=== PATIENT | male | born 1960 | race Hispanic/Latino ===

== ENCOUNTER 2017-09-01 19:42 | Emergency (ER) | payer SELFPAY ==
[2017-09-01 20:16] LABS: BASOPHILS % (AUTO) 0.7 % (0.0-5.0); EOSINOPHILS % (AUTO) 2.1 % (0.0-8.0); HEMATOCRIT 41.8 % (42-54); LYMPHOCYTES % (AUTO) 43.8 % (21.0-51.0); MEAN CORPUSCULAR HEMOGLOBIN 31.5 pg (27.0-33.0); MEAN CORPUSCULAR HGB CONC 35.3 g/dL (32.0-36.0); MEAN CORPUSCULAR VOLUME 89.4 fL (79-99); MONOCYTES % (AUTO) 8.4 % (3.0-13.0); NUCLEATED RED BLOOD CELLS 0.2 % (0.0-0.19); PLATELET COUNT (AUTO) 226 K/uL (130-400); RED BLOOD CELL COUNT(AUTO) 4.67 MIL/uL (4.50-6.20); RED CELL DISTRIBUTION WIDTH 13.9 % (11.0-15.5)
[2017-09-01 20:29] LABS: CARBON DIOXIDE 29 mmol/L (21-32); CHLORIDE 105 mmol/L (101-111); GLOMERULAR FILTR. RATE CALC 82 mL/min (>60); GLUCOSE,RANDOM 118 mg/dL (70-105); INR 1.04 (0.85-1.15); PARTIAL THROMBOPLASTIN TIME 25.8 SEC (26.3-35.5); POTASSIUM 3.6 mmol/L (3.5-5.1); PROTHROMBIN TIME 10.9 SEC (9.6-11.6); SODIUM SERUM 142 mmol/L (136-145); UREA NITROGEN, BLOOD 20 mg/dL (7-18)
[2017-09-01 20:42] LABS: ALANINE AMINOTRANSFERASE 21 U/L (12-78); ALBUMIN 3.9 g/dL (3.5-5.0); ASPARTATE AMINOTRANSFERASE 17 U/L (10-37); BILIRUBIN,TOTAL 1.6 mg/dL (0.2-1.0); CREATINE KINASE MB 0.8 ng/mL (0.5-3.6); CREATINE KINASE, TOTAL 70 U/L (21-232); LIPASE 256 U/L (114-286); MYOGLOBIN 40 ng/mL (10-92); TOTAL PROTEIN, SERUM 7.6 g/dL (6.0-8.3); TROPONIN I < 0.04 ng/mL (0.00-0.06)
[2017-09-01] MEDS ORDERED: IOPAMIDOL-370 75 ML VIAL IV ONE (21:04)
[2017-09-01 22:27] LABS: APPEARANCE,URINE Clear (CLEAR); BILIRUBIN,URINE Negative (NEGATIVE); COLOR,URINE Yellow (YELLOW); GLUCOSE, URINE (UA) Negative (NEGATIVE); KETONES,URINE Negative (NEGATIVE); LEUKOCYTE ESTERASE ,URINE Negative (NEGATIVE); NITRATE,URINE Negative (NEGATIVE); OCCULT BLOOD,URINE Negative (NEGATIVE); PROTEIN,URINE Negative (NEGATIVE)
== END 2017-09-01 23:03 | disposition home or self-care (01) ==
LOC: EDH 19:42
DX: K52.9 Noninfective gastroenteritis and colitis, unspecified (principal); E11.9 Type 2 diabetes mellitus without complications; R79.1 Abnormal coagulation profile; Z88.0 Allergy status to penicillin
CPT/HCPCS: 36415; 71045; 74177; 80053; 80339; 81003; 82550; 82553; 83605; 83690; 83874; 84484 ×2; 85025; 85610; 85730; 87040 ×2; 87088; 93005; 94761; 96360; 96361; 99285; Q9967

== ENCOUNTER 2019-03-19 19:31 | Emergency (ER) | payer SELFPAY ==
[2019-03-19 19:50] LABS: BASOPHILS % (AUTO) 0.8 % (0.0-5.0); EOSINOPHILS % (AUTO) 1.3 % (0.0-8.0); HEMATOCRIT 40.6 % (42-54); LYMPHOCYTES % (AUTO) 41.1 % (21.0-51.0); MEAN CORPUSCULAR HEMOGLOBIN 31.9 pg (27.0-33.0); MEAN CORPUSCULAR HGB CONC 34.3 g/dL (32.0-36.0); MEAN CORPUSCULAR VOLUME 93.1 fL (79-99); MONOCYTES % (AUTO) 6.9 % (3.0-13.0); NEUTROPHILS % (AUTO) 49.9 % (40.0-77.0); NUCLEATED RED BLOOD CELLS 0.1 % (0.0-0.19); PLATELET COUNT (AUTO) 211 K/uL (130-400); RED BLOOD CELL COUNT(AUTO) 4.37 MIL/uL (4.50-6.20); RED CELL DISTRIBUTION WIDTH 14.4 % (11.0-15.5); WHITE BLOOD COUNT (AUTO) 5.5 K/uL (4.8-10.8)
[2019-03-19] MEDS ORDERED: DiphenhydrAMINE HCL 50 MG/ML VIAL ONE (19:56)
[2019-03-19] MEDS ORDERED: ONDANSETRON HCL 4 MG/2 ML VIAL ONE (19:56)
[2019-03-19 20:01] LABS: POTASSIUM 3.5 mmol/L (3.5-5.1)
[2019-03-19 20:03] LABS: BILIRUBIN,URINE Negative (NEGATIVE); COLOR,URINE Yellow (YELLOW); GLUCOSE, URINE (UA) Negative (NEGATIVE); KETONES,URINE Negative (NEGATIVE); LEUKOCYTE ESTERASE ,URINE Negative (NEGATIVE); NITRATE,URINE Negative (NEGATIVE); OCCULT BLOOD,URINE Negative (NEGATIVE); PH,URINE 8.5 (5.0-8.0); PROTEIN,URINE Negative (NEGATIVE)
[2019-03-19 20:06] LABS: ALBUMIN 3.7 g/dL (3.5-5.0); BILIRUBIN,TOTAL 1.1 mg/dL (0.2-1.0); TOTAL PROTEIN, SERUM 7.3 g/dL (6.0-8.3)
[2019-03-19 20:07] LABS: APPEARANCE,URINE CLEAR (CLEAR)
[2019-03-19 20:11] LABS: AMPHET/METH SCREEN,URINE NEGATIVE (NEGATIVE); BARBITURATE SCREEN, URINE NEGATIVE (NEGATIVE); BENZODIAZEPINES SCREEN,URINE NEGATIVE (NEGATIVE); CANNABINOID SCREEN,URINE NEGATIVE (NEGATIVE); COCAINE SCREEN,URINE NEGATIVE (NEGATIVE); OPIATE SCREEN,URINE NEGATIVE (NEGATIVE); PHENCYCLIDINE SCREEN,URINE NEGATIVE (NEGATIVE)
== END 2019-03-19 23:29 | disposition home or self-care (01) ==
LOC: EDH 19:31
DX: H81.10 Benign paroxysmal vertigo, unspecified ear (principal); R55 Syncope and collapse; R06.4 Hyperventilation; E11.9 Type 2 diabetes mellitus without complications; F32.9 Major depressive disorder, single episode, unspecified; F41.9 Anxiety disorder, unspecified; Z88.0 Allergy status to penicillin
CPT/HCPCS: 36415; 71045; 80053; 80305; 81003; 83690; 84484 ×2; 85025; 93005 ×2; 96374; 96375; 99285; J1200; J2405

== ENCOUNTER 2019-05-21 23:23 | Emergency (ER) | payer SELFPAY ==
[2019-05-21] MEDS ORDERED: SODIUM CHLORIDE 0.9% 1000ML 1,000 ML IV ONE (23:42)
[2019-05-21] MEDS ORDERED: ACETAMINOPHEN EXTRA STRENGTH 500 MG TABLET ONE (23:44)
[2019-05-21 23:50] LABS: BASOPHILS % (AUTO) 0.6 % (0.0-5.0); EOSINOPHILS % (AUTO) 0.2 % (0.0-8.0); HEMATOCRIT 37.2 % (42-54); LYMPHOCYTES % (AUTO) 50.1 % (21.0-51.0); MEAN CORPUSCULAR HEMOGLOBIN 31.3 pg (27.0-33.0); MEAN CORPUSCULAR HGB CONC 34.7 g/dL (32.0-36.0); MEAN CORPUSCULAR VOLUME 90.3 fL (79-99); MONOCYTES % (AUTO) 18.4 % (3.0-13.0); NEUTROPHILS % (AUTO) 30.3 % (40.0-77.0); PLATELET COUNT (AUTO) 174 K/uL (130-400); RED BLOOD CELL COUNT(AUTO) 4.12 MIL/uL (4.50-6.20); RED CELL DISTRIBUTION WIDTH 13.3 % (11.0-15.5)
[2019-05-22 00:03] LABS: CARBON DIOXIDE 26 mmol/L (21-32); CHLORIDE 103 mmol/L (101-111); CREATININE 1.1 mg/dL (0.5-1.5); GLOMERULAR FILTR. RATE CALC 73 mL/min (>60); GLUCOSE,RANDOM 95 mg/dL (70-105); POTASSIUM 4.1 mmol/L (3.5-5.1); SODIUM SERUM 140 mmol/L (136-145); UREA NITROGEN, BLOOD 22 mg/dL (7-18)
[2019-05-22 00:13] LABS: INR 0.98 (0.85-1.15); PARTIAL THROMBOPLASTIN TIME 26.4 SEC (26.3-35.5); PROTHROMBIN TIME 10.3 SEC (9.6-11.6)
[2019-05-22 00:14] LABS: ALANINE AMINOTRANSFERASE 28 U/L (12-78); ASPARTATE AMINOTRANSFERASE 37 U/L (10-37); BILIRUBIN,TOTAL 1.1 mg/dL (0.2-1.0); CREATINE KINASE, TOTAL 375 U/L (21-232); MYOGLOBIN 214 ng/mL (10-92); TOTAL PROTEIN, SERUM 7.8 g/dL (6.0-8.3); TROPONIN I < 0.04 ng/mL (0.00-0.06)
[2019-05-22 00:36] LABS: APPEARANCE,URINE Clear (CLEAR); BILIRUBIN,URINE Negative (NEGATIVE); COLOR,URINE Yellow (YELLOW); GLUCOSE, URINE (UA) Negative (NEGATIVE); KETONES,URINE 15 mg/dL (NEGATIVE); LEUKOCYTE ESTERASE ,URINE Negative (NEGATIVE); NITRATE,URINE Negative (NEGATIVE); OCCULT BLOOD,URINE Negative (NEGATIVE); PH,URINE 6.5 (5.0-8.0); PROTEIN,URINE Trace mg/dL (NEGATIVE)
[2019-05-22 00:55] LABS: RBC,URINE 0-1 /HPF (0-1); WBC,URINE 0-1 /HPF (0-1)
[2019-05-22 00:56] LABS: BACTERIA,URINE Few /HPF (None Seen); SQUAMOUS EPITHELIAL CELL,UR 0-2 /HPF (0-2)
== END 2019-05-22 01:24 | disposition home or self-care (01) ==
LOC: EDH 23:23
DX: J11.1 Influenza due to unidentified influenza virus with other respiratory manifestations (principal); E86.9 Volume depletion, unspecified; R53.83 Other fatigue; R55 Syncope and collapse; F41.9 Anxiety disorder, unspecified; F32.9 Major depressive disorder, single episode, unspecified; Z98.890 Other specified postprocedural states; Z88.0 Allergy status to penicillin
CPT/HCPCS: 36415 ×2; 70450; 71045; 80053; 81001; 82550; 83605; 83874; 84145; 84484 ×2; 85025; 85610; 85730; 87040 ×2; 87088; 87804 ×2; 93005; 96360; 99285; J7030

== ENCOUNTER 2019-12-07 22:43 | Emergency (ER) | payer OTHER, SELFPAY ==
[2019-12-07] MEDS ORDERED: ONDANSETRON ODT 4 MG TAB ONE (23:04)
== END 2019-12-08 00:21 | disposition home or self-care (01) ==
LOC: EDH 22:43
DX: R11.2 Nausea with vomiting, unspecified (principal); E11.9 Type 2 diabetes mellitus without complications; F41.9 Anxiety disorder, unspecified; F32.9 Major depressive disorder, single episode, unspecified; Z88.0 Allergy status to penicillin
CPT/HCPCS: 82948

== ENCOUNTER 2020-02-09 02:16 | Emergency (ER) | payer SELFPAY ==
[2020-02-09] MEDS ORDERED: SODIUM CHLORIDE 0.9% 1000ML 1,000 ML IV ONE (02:17)
[2020-02-09 02:47] LABS: BASOPHILS % (AUTO) 0.3 % (0.0-5.0); EOSINOPHILS % (AUTO) 1.4 % (0.0-8.0); HEMATOCRIT 34.8 % (42-54); LYMPHOCYTES % (AUTO) 41.6 % (21.0-51.0); MEAN CORPUSCULAR HEMOGLOBIN 33.6 pg (27.0-33.0); MEAN CORPUSCULAR HGB CONC 35.1 g/dL (32.0-36.0); MEAN CORPUSCULAR VOLUME 95.9 fL (79-99); MONOCYTES % (AUTO) 7.9 % (3.0-13.0); NEUTROPHILS % (AUTO) 48.6 % (40.0-77.0); PLATELET COUNT (AUTO) 256 K/uL (130-400); RED BLOOD CELL COUNT(AUTO) 3.63 MIL/uL (4.50-6.20); RED CELL DISTRIBUTION WIDTH 13.9 % (11.0-15.5); WHITE BLOOD COUNT (AUTO) 6.5 K/uL (4.8-10.8)
[2020-02-09 02:56] LABS: CREATININE 0.9 mg/dL (0.5-1.5); POTASSIUM 3.8 mmol/L (3.5-5.1)
[2020-02-09 02:59] LABS: INR 0.96 (0.85-1.15); PARTIAL THROMBOPLASTIN TIME 21.3 SEC (26.3-35.5); PROTHROMBIN TIME 10.4 SEC (9.6-11.6)
[2020-02-09 03:01] LABS: ALBUMIN 3.8 g/dL (3.5-5.0); BILIRUBIN,TOTAL 0.7 mg/dL (0.2-1.0)
[2020-02-09] MEDS ORDERED: MECLIZINE HCL 25 MG TABLET ONE (03:15)
[2020-02-09] MEDS ORDERED: ONDANSETRON HCL 4 MG/2 ML VIAL ONE (03:16)
[2020-02-09 04:19] LABS: AMPHET/METH SCREEN,URINE NEGATIVE (NEGATIVE); BARBITURATE SCREEN, URINE NEGATIVE (NEGATIVE); BENZODIAZEPINES SCREEN,URINE NEGATIVE (NEGATIVE); CANNABINOID SCREEN,URINE NEGATIVE (NEGATIVE); COCAINE SCREEN,URINE NEGATIVE (NEGATIVE); OPIATE SCREEN,URINE NEGATIVE (NEGATIVE); PHENCYCLIDINE SCREEN,URINE NEGATIVE (NEGATIVE)
[2020-02-09 05:24] LABS: APPEARANCE,URINE Clear (CLEAR); BILIRUBIN,URINE Negative (NEGATIVE); COLOR,URINE Yellow (YELLOW); GLUCOSE, URINE (UA) Negative (NEGATIVE); KETONES,URINE Trace mg/dL (NEGATIVE); LEUKOCYTE ESTERASE ,URINE Negative (NEGATIVE); NITRATE,URINE Negative (NEGATIVE); OCCULT BLOOD,URINE Moderate (NEGATIVE); PROTEIN,URINE Trace mg/dL (NEGATIVE)
[2020-02-09 05:36] LABS: BACTERIA,URINE None Seen /HPF (None Seen); MUCUS,URINE Rare LPF (None Seen); SQUAMOUS EPITHELIAL CELL,UR Rare /HPF (0-2); WBC,URINE None Seen /HPF (0-1)
[2020-02-09] MEDS ORDERED: ACETAMINOPHEN 325 MG TAB ONE (06:03)
== END 2020-02-09 07:03 | disposition home or self-care (01) ==
LOC: EDH 02:16
DX: R42 Dizziness and giddiness (principal); R11.10 Vomiting, unspecified; R94.02 Abnormal brain scan; F41.9 Anxiety disorder, unspecified; F32.9 Major depressive disorder, single episode, unspecified; E11.9 Type 2 diabetes mellitus without complications; Z90.49 Acquired absence of other specified parts of digestive tract; Z88.0 Allergy status to penicillin
CPT/HCPCS: 36415; 70450; 80053; 80305; 81001; 82550; 82948; 83690; 84484; 85025; 85610; 85730; 93005; 96361; 96374; 99285; J2405; J7030

== ENCOUNTER 2020-03-09 19:25 | Inpatient (IN) | payer OTHER, SELFPAY ==
[~2020-03-09] VITALS: Ht 175.3 cm; Wt 51.8 kg
[2020-03-09 20:02] LABS: BASOPHILS % (AUTO) 0.2 % (0.0-5.0); EOSINOPHILS % (AUTO) 1.7 % (0.0-8.0); HEMATOCRIT 40.4 % (42-54); LYMPHOCYTES % (AUTO) 41.3 % (21.0-51.0); MEAN CORPUSCULAR HEMOGLOBIN 33.6 pg (27.0-33.0); MEAN CORPUSCULAR HGB CONC 34.9 g/dL (32.0-36.0); MEAN CORPUSCULAR VOLUME 96.2 fL (79-99); MONOCYTES % (AUTO) 7.4 % (3.0-13.0); NEUTROPHILS % (AUTO) 49.4 % (40.0-77.0); PLATELET COUNT (AUTO) 264 K/uL (130-400); WHITE BLOOD COUNT (AUTO) 5.3 K/uL (4.8-10.8)
[2020-03-09] MEDS ORDERED: MECLIZINE HCL 25 MG TABLET ONE (20:14)
[2020-03-09] MEDS ORDERED: ONDANSETRON HCL 4 MG/2 ML VIAL ONE (20:14)
[2020-03-09] MEDS ORDERED: SODIUM CHLORIDE 0.9% 1000ML 1,000 ML IV ONE (20:15)
[2020-03-09 20:16] LABS: CREATININE 0.9 mg/dL (0.5-1.5); POTASSIUM 3.7 mmol/L (3.5-5.1)
[2020-03-09 20:20] LABS: ALBUMIN 4.4 g/dL (3.5-5.0); BILIRUBIN,TOTAL 0.9 mg/dL (0.2-1.0); TOTAL PROTEIN, SERUM 8.5 g/dL (6.0-8.3)
[2020-03-09] MEDS ORDERED: ACETAMINOPHEN 325 MG TAB PO PRN (21:30)
[2020-03-09] MEDS ORDERED: ONDANSETRON HCL 4 MG/2 ML VIAL IV PRN (21:30)
[2020-03-09] MEDS ORDERED: LACTULOSE 20 GM/30 ML UDCUP PO PRN (21:30)
[2020-03-09] MEDS ORDERED: MECLIZINE HCL 25 MG TABLET PO PRN (21:30)
[2020-03-09 21:52] LABS: APPEARANCE,URINE Clear (CLEAR); BILIRUBIN,URINE Negative (NEGATIVE); COLOR,URINE Yellow (YELLOW); GLUCOSE, URINE (UA) Negative (NEGATIVE); KETONES,URINE Negative (NEGATIVE); LEUKOCYTE ESTERASE ,URINE Negative (NEGATIVE); NITRATE,URINE Negative (NEGATIVE); OCCULT BLOOD,URINE Negative (NEGATIVE); PH,URINE 5.5 (5.0-8.0); PROTEIN,URINE Negative (NEGATIVE)
[2020-03-09] MEDS ORDERED: FAMOTIDINE 20MG TAB 20 MG TAB ONE (22:39)
[2020-03-09] MEDS ORDERED: ACETAMINOPHEN 325 MG TAB ONE (22:40)
[2020-03-10 06:47] LABS: BASOPHILS % (AUTO) 0.2 % (0.0-5.0); EOSINOPHILS % (AUTO) 2.3 % (0.0-8.0); HEMATOCRIT 34.6 % (42-54); LYMPHOCYTES % (AUTO) 41.4 % (21.0-51.0); MEAN CORPUSCULAR HEMOGLOBIN 33.3 pg (27.0-33.0); MEAN CORPUSCULAR VOLUME 95.3 fL (79-99); MONOCYTES % (AUTO) 9.3 % (3.0-13.0); NEUTROPHILS % (AUTO) 46.6 % (40.0-77.0); PLATELET COUNT (AUTO) 226 K/uL (130-400); RED BLOOD CELL COUNT(AUTO) 3.63 MIL/uL (4.50-6.20); RED CELL DISTRIBUTION WIDTH 13.7 % (11.0-15.5); WHITE BLOOD COUNT (AUTO) 4.9 K/uL (4.8-10.8)
[2020-03-10 06:58] LABS: CREATININE 0.8 mg/dL (0.5-1.5)
[2020-03-10] MEDS ORDERED: MECLIZINE HCL 25 MG TABLET ONE ×2 (07:51→14:37)
[2020-03-10 18:05] VITALS: BP 114/75
[2020-03-10 19:00] VITALS: BP 112/80
[2020-03-10] MEDS: FAMOTIDINE 20MG TAB 20 MG TAB PO SCH (20:38)
[2020-03-10] MEDS: SODIUM CHLORIDE 0.9% 1000ML 1,000 ML IV SCH ×2 (20:46→23:34)
[2020-03-11] VITALS (7 sets, daily range): BP systolic 98–121; BP diastolic 55–71
[2020-03-11] MEDS: ACETAMINOPHEN 325 MG TAB PO PRN (04:51)
--- NOTE | 2020-03-11 08:00 | NUR ---
PT AAO X 3 REVIEW PLAN OF CARE, DENIES ANY DIZZNESS . CALL LIGHT IN REACH .
[2020-03-11] MEDS: SODIUM CHLORIDE 0.9% 1000ML 1,000 ML IV SCH (09:04)
[2020-03-11] MEDS: FAMOTIDINE 20MG TAB 20 MG TAB PO SCH ×2 (09:04→20:19)
--- NOTE | 2020-03-11 09:30 | NUR ---
DR. CARTER HERE , AND ASSESSMENT NEURO DONE , PT WAS ABLE TO STAND WELL AT PRESENT , DANI LorenzoORDERS FOR A MRI . TO BE DONE TODAY.
--- NOTE | 2020-03-11 13:51 | NUR ---
cm note met with patient and states resides athome with sister, independent with ambulation and adls. but getting weaker and would llike assistance. provided with area agency on aging ph#s and requested I call for him as well and left message for [facility] for f/u. for possible provider services and possible walker.provided with list of community resources and rx assist. pt verbalizes understanding. Addendum: 03/11/20 at 1355 by THIEN MARTINEZ CM Amended: Links added.
--- NOTE | 2020-03-11 16:00 | NUR ---
RESTING QUIETLY ,DENIES ANY DIZZNESS , AND CALL LIGHT IN REACH .
[2020-03-12] MEDS: SODIUM CHLORIDE 0.9% 1000ML 1,000 ML IV SCH (02:50)
[2020-03-12 03:45] VITALS: BP 107/61
[2020-03-12] MEDS: ACETAMINOPHEN 325 MG TAB PO PRN (05:35)
[2020-03-12 05:43] LABS: BASOPHILS % (AUTO) 0.4 % (0.0-5.0); EOSINOPHILS % (AUTO) 3.4 % (0.0-8.0); HEMATOCRIT 37.1 % (42-54); LYMPHOCYTES % (AUTO) 41.7 % (21.0-51.0); MEAN CORPUSCULAR HEMOGLOBIN 33.3 pg (27.0-33.0); MEAN CORPUSCULAR HGB CONC 34.8 g/dL (32.0-36.0); MEAN CORPUSCULAR VOLUME 95.9 fL (79-99); MONOCYTES % (AUTO) 10.2 % (3.0-13.0); NEUTROPHILS % (AUTO) 44.3 % (40.0-77.0); PLATELET COUNT (AUTO) 253 K/uL (130-400); RED BLOOD CELL COUNT(AUTO) 3.87 MIL/uL (4.50-6.20); RED CELL DISTRIBUTION WIDTH 13.2 % (11.0-15.5); WHITE BLOOD COUNT (AUTO) 4.7 K/uL (4.8-10.8)
[2020-03-12 06:01] LABS: CREATININE 0.9 mg/dL (0.5-1.5); POTASSIUM 4.1 mmol/L (3.5-5.1)
--- NOTE | 2020-03-12 06:09 | NUR ---
PATIENT HAS A BLOOD SUGAR OF 80. I GAVE HIM SOME APPLE JUICE TO RAISE IT AND SOME ACETAMINOPHEN FOR HEADACHE
[2020-03-12 08:00] VITALS: BP 106/68
--- NOTE | 2020-03-12 08:00 | NUR ---
PT UP IN THE ROOM . REVIEW . FALL RISK , DENIES ANY DIZZNESS SPELLS CALL LIGHT IN REACH.
--- NOTE | 2020-03-12 08:50 | NUR ---
DR. CARTER HERE ,AND ASSESSMENT DONE . SPOKE TO PT REGARDING HIS , CARE TO [facility] IN HIS OFFICE, AND NEEDED REFERRAL TO A [facility] DUE TO HIS CONDITION OF HIS BRAIN . PT . AWARE OF INDICATION OF CARE.
[2020-03-12] MEDS: FAMOTIDINE 20MG TAB 20 MG TAB PO SCH (09:52)
[2020-03-12 12:00] VITALS: BP 122/72
[2020-03-12 16:00] VITALS: BP 118/79
--- NOTE | 2020-03-12 18:35 | NUR ---
[facility], REVIEW SUMMARY. AND LIST GIVEN FOR PRIVATE DRBj FOR HIS FOLLOWUP. SL TO HIS RT FOREARM WAS DC WITH NO HEMATOMA OR REDNESS NOTED .. SM PRESSURE APPLICATION DRSG IN PLACE ,DENIES ANY DIZZNESSS .
== END 2020-03-12 18:35 | disposition home or self-care (01) | DRG 57 ==
LOC: EDH 19:25 → EDHIP 19:26 → 3BH 03-10 17:51
PROVIDERS: ADMIT Family Medicine; ATTEND Family Medicine
DX: G23.8 Other specified degenerative diseases of basal ganglia (principal); F41.9 Anxiety disorder, unspecified; F31.9 Bipolar disorder, unspecified; R29.6 Repeated falls; Z88.0 Allergy status to penicillin
CPT/HCPCS: 36415; 70450; 70544; 70547; 70551; 80048; 80053; 81003; 82948; 83605; 83690; 83735; 85025; 93005; G0378; J2405; J7030

== ENCOUNTER 2020-04-07 12:01 | Emergency (ER) | payer SELFPAY ==
[2020-04-07] MEDS ORDERED: PROMETHAZINE HCL 25 MG/ML 1ML AMPULE IM ONE (12:02)
[2020-04-07] MEDS ORDERED: SODIUM CHLORIDE 0.9% 50 ML IV ONE (12:25)
[2020-04-07 12:27] LABS: BASOPHILS % (AUTO) 0.4 % (0.0-5.0); EOSINOPHILS % (AUTO) 0.9 % (0.0-8.0); HEMATOCRIT 36.6 % (42-54); LYMPHOCYTES % (AUTO) 32.7 % (21.0-51.0); MEAN CORPUSCULAR HEMOGLOBIN 34.1 pg (27.0-33.0); MEAN CORPUSCULAR HGB CONC 35.2 g/dL (32.0-36.0); MEAN CORPUSCULAR VOLUME 96.8 fL (79-99); MONOCYTES % (AUTO) 7.1 % (3.0-13.0); NEUTROPHILS % (AUTO) 58.7 % (40.0-77.0); PLATELET COUNT (AUTO) 276 K/uL (130-400); RED BLOOD CELL COUNT(AUTO) 3.78 MIL/uL (4.50-6.20); RED CELL DISTRIBUTION WIDTH 13.6 % (11.0-15.5); WHITE BLOOD COUNT (AUTO) 5.4 K/uL (4.8-10.8)
[2020-04-07 12:54] LABS: POTASSIUM 3.9 mmol/L (3.5-5.1)
[2020-04-07 12:58] LABS: ALBUMIN 3.8 g/dL (3.5-5.0); TOTAL PROTEIN, SERUM 7.4 g/dL (6.0-8.3)
[2020-04-07 13:40] LABS: APPEARANCE,URINE Clear (CLEAR); BILIRUBIN,URINE Negative (NEGATIVE); COLOR,URINE Yellow (YELLOW); GLUCOSE, URINE (UA) Negative (NEGATIVE); KETONES,URINE Negative (NEGATIVE); LEUKOCYTE ESTERASE ,URINE Negative (NEGATIVE); NITRATE,URINE Negative (NEGATIVE); OCCULT BLOOD,URINE Negative (NEGATIVE); PH,URINE 5.5 (5.0-8.0); PROTEIN,URINE Negative (NEGATIVE)
== END 2020-04-07 14:15 | disposition home or self-care (01) ==
LOC: EDH 12:01
DX: R13.10 Dysphagia, unspecified (principal); R11.10 Vomiting, unspecified; E11.9 Type 2 diabetes mellitus without complications; F31.9 Bipolar disorder, unspecified; F41.9 Anxiety disorder, unspecified; F20.9 Schizophrenia, unspecified; Z88.0 Allergy status to penicillin
CPT/HCPCS: 36415; 70360; 74018; 80053; 81003; 83690; 85025; 96365; 99284; J2550

== ENCOUNTER 2020-04-18 11:32 | Emergency (ER) | payer SELFPAY ==
[2020-04-18 12:07] LABS: APPEARANCE,URINE Clear (CLEAR); BILIRUBIN,URINE Negative (NEGATIVE); COLOR,URINE Yellow (YELLOW); GLUCOSE, URINE (UA) Negative (NEGATIVE); KETONES,URINE Negative (NEGATIVE); LEUKOCYTE ESTERASE ,URINE Trace (NEGATIVE); NITRATE,URINE Negative (NEGATIVE); OCCULT BLOOD,URINE Negative (NEGATIVE); PROTEIN,URINE Negative (NEGATIVE)
[2020-04-18 12:13] LABS: AMPHET/METH SCREEN,URINE NEGATIVE (NEGATIVE); BARBITURATE SCREEN, URINE NEGATIVE (NEGATIVE); BENZODIAZEPINES SCREEN,URINE NEGATIVE (NEGATIVE); CANNABINOID SCREEN,URINE NEGATIVE (NEGATIVE); COCAINE SCREEN,URINE NEGATIVE (NEGATIVE); OPIATE SCREEN,URINE NEGATIVE (NEGATIVE); PHENCYCLIDINE SCREEN,URINE NEGATIVE (NEGATIVE)
[2020-04-18 12:15] LABS: BASOPHILS % (AUTO) 0.5 % (0.0-5.0); EOSINOPHILS % (AUTO) 0.9 % (0.0-8.0); LYMPHOCYTES % (AUTO) 31.7 % (21.0-51.0); MEAN CORPUSCULAR HEMOGLOBIN 34.1 pg (27.0-33.0); MEAN CORPUSCULAR HGB CONC 35.1 g/dL (32.0-36.0); MEAN CORPUSCULAR VOLUME 97.2 fL (79-99); MONOCYTES % (AUTO) 7.8 % (3.0-13.0); NEUTROPHILS % (AUTO) 58.9 % (40.0-77.0); PLATELET COUNT (AUTO) 291 K/uL (130-400); RED BLOOD CELL COUNT(AUTO) 4.22 MIL/uL (4.50-6.20); RED CELL DISTRIBUTION WIDTH 12.9 % (11.0-15.5); WHITE BLOOD COUNT (AUTO) 4.4 K/uL (4.8-10.8)
[2020-04-18 12:34] LABS: BACTERIA,URINE Rare /HPF (None Seen); RBC,URINE 0-1 /HPF (0-1); SQUAMOUS EPITHELIAL CELL,UR Rare /HPF (0-2); WBC,URINE 0-1 /HPF (0-1)
[2020-04-18 12:38] LABS: CARBON DIOXIDE 29 mmol/L (21-32); CHLORIDE 104 mmol/L (101-111); CREATININE 0.8 mg/dL (0.5-1.5); GLOMERULAR FILTR. RATE CALC 105 mL/min (>60); GLUCOSE,RANDOM 97 mg/dL (70-105); SODIUM SERUM 141 mmol/L (136-145); UREA NITROGEN, BLOOD 15 mg/dL (7-18)
[2020-04-18 12:42] LABS: ALANINE AMINOTRANSFERASE 21 U/L (12-78); ALBUMIN 4.3 g/dL (3.5-5.0); ALCOHOL, BLOOD 6 mg/dL (0-10); ASPARTATE AMINOTRANSFERASE 20 U/L (10-37); BILIRUBIN,TOTAL 1.3 mg/dL (0.2-1.0); TOTAL PROTEIN, SERUM 8.1 g/dL (6.0-8.3)
[2020-04-18 12:43] LABS: SALICYLATE < 2.8 mg/dL (2.8-20.0)
[2020-04-18 12:44] LABS: ACETAMINOPHEN < 1 mcg/mL (10-29)
== END 2020-04-18 14:00 | disposition home or self-care (01) ==
LOC: EDH 11:32
DX: B34.9 Viral infection, unspecified (principal); Z20.828 Contact with and (suspected) exposure to other viral communicable diseases; F20.9 Schizophrenia, unspecified; F41.9 Anxiety disorder, unspecified; F32.9 Major depressive disorder, single episode, unspecified; Z90.49 Acquired absence of other specified parts of digestive tract; Z88.0 Allergy status to penicillin; Z79.899 Other long term (current) drug therapy
CPT/HCPCS: 36415; 71045; 80053; 80305; 81001; 85025; 87426; 99284; G0481; U0003

== ENCOUNTER → 2020-11-12 | Outpatient (CLI) | payer OTHER | END | disposition home or self-care (01) | LOC: RAH 09:51 | PROVIDERS: ATTEND Family Medicine | DX: M54.9 Dorsalgia, unspecified (principal); Z90.49 Acquired absence of other specified parts of digestive tract | CPT/HCPCS: 72100 ==

== ENCOUNTER 2020-12-03 17:20 | Emergency (ER) | payer OTHER ==
[~2020-12-03] VITALS: Ht 172.7 cm; Wt 62.1 kg
[2020-12-03 17:22] VITALS: BP 118/75
[2020-12-03] MEDS ORDERED: ACETAMINOPHEN WITH CODEINE 1 TAB TAB PO ONE (18:30)
[2020-12-03] MEDS ORDERED: GENTAMICIN SULFATE 0.3% 5ML DROPS OS SCH (18:30)
[2020-12-03 18:39] VITALS: BP 133/77
== END 2020-12-03 19:08 | disposition home or self-care (01) ==
LOC: EDH 17:20
DX: H10.9 Unspecified conjunctivitis (principal); F31.9 Bipolar disorder, unspecified; F41.9 Anxiety disorder, unspecified; Z88.0 Allergy status to penicillin

== ENCOUNTER 2022-02-21 19:37 | Observation (INO) | payer MEDICAID ==
[~2022-02-21] VITALS: Ht 172.7 cm; Wt 62.6 kg
[2022-02-21] MEDS ORDERED: ASPIRIN 325MG TAB ONE (19:58)
[2022-02-21] MEDS ORDERED: NITROGLYCERIN 1GM OINT 1 INCH/1GM TD ONE ×2 (19:58→20:00)
[2022-02-21] MEDS ORDERED: NITROGLYCERIN 0.4 MG SL TAB SL PRN (20:00)
[2022-02-21] MEDS ORDERED: ASPIRIN 325MG TAB PO ONE (20:00)
[2022-02-21 20:02] LABS: BASOPHILS % (AUTO) 0.4 % (0.0-5.0); LYMPHOCYTES % (AUTO) 46.2 % (21.0-51.0); MEAN CORPUSCULAR HEMOGLOBIN 28.2 pg (27.0-33.0); MEAN CORPUSCULAR VOLUME 80.5 fL (79-99); MONOCYTES % (AUTO) 5.8 % (3.0-13.0); NEUTROPHILS % (AUTO) 45.5 % (40.0-77.0); PLATELET COUNT (AUTO) 237 K/uL (130-400); RED BLOOD CELL COUNT(AUTO) 4.97 MIL/uL (4.50-6.20); RED CELL DISTRIBUTION WIDTH 12.9 % (11.0-15.5); WHITE BLOOD COUNT (AUTO) 7.4 K/uL (4.8-10.8)
[2022-02-21 20:23] LABS: ALBUMIN 3.7 g/dL (3.5-5.0); CREATININE 1.2 mg/dL (0.5-1.5); POTASSIUM 4.4 mmol/L (3.5-5.1); TOTAL PROTEIN, SERUM 7.5 g/dL (6.0-8.3)
[2022-02-21 20:25] LABS: APPEARANCE,URINE CLEAR (CLEAR); BILIRUBIN,URINE NEGATIVE (NEGATIVE); COLOR,URINE COLORLESS (YELLOW); GLUCOSE, URINE (UA) >=1000 mg/dL (NEGATIVE); KETONES,URINE NEGATIVE (NEGATIVE); LEUKOCYTE ESTERASE ,URINE NEGATIVE Leu/uL (NEGATIVE); NITRATE,URINE NEGATIVE (NEGATIVE); OCCULT BLOOD,URINE NEGATIVE (NEGATIVE); PROTEIN,URINE NEGATIVE (NEGATIVE); UROBILINOGEN,URINE 0.2 mg/dL (0.2-1.0)
[2022-02-21] MEDS ORDERED: INSULIN LISPRO 100 UNIT/ML 3ML SQ ONE (20:30)
[2022-02-21 20:34] LABS: BACTERIA,URINE RARE /HPF (None Seen); MUCUS,URINE RARE LPF (None Seen); RBC,URINE 0-1 /HPF (0-1); WBC,URINE 0-1 /HPF (0-1)
[2022-02-21 20:38] LABS: B-TYPE NATRIURETIC PEPTIDE 7 pg/mL (0-100)
[2022-02-21] MEDS ORDERED: 0.9% NACL 500ML IV.SOLN 500 ML IV SCH (21:00)
[2022-02-21] MEDS ORDERED: INSULIN HUMULIN R 100 UNIT/ML 3ML IV ONE (21:00)
[2022-02-21] MEDS ORDERED: ONDANSETRON 4MG INJ IV PRN (22:00)
[2022-02-21] MEDS ORDERED: ACETAMINOPHEN 325 MG TAB PO PRN ×2 (22:00)
[2022-02-21] MEDS ORDERED: LACTULOSE 20 GM/30 ML UDCUP PO PRN (22:00)
[2022-02-21 22:06] LABS: CHOLESTEROL 157 mg/dL (<200); CREATINE KINASE, TOTAL 136 U/L (21-232); HDL CHOLESTEROL 42 mg/dL (29-71); LDL DIRECT 101 mg/dL (0-99); TRIGLYCERIDES 163 mg/dL (30-200)
[2022-02-21 22:08] LABS: HEMOGLOBIN A1C 10.1 % (4.0-6.0)
[2022-02-21] MEDS: 0.9%NACL 1000ML 1,000 ML IV SCH (22:33)
[2022-02-22 01:25] VITALS: BP 106/58
[2022-02-22 04:00] VITALS: BP 106/64
[2022-02-22] MEDS ORDERED: INSULIN HUMULIN R 100 UNIT/ML 3ML SQ SCH ×2 (07:30→11:30)
[2022-02-22] MEDS: 0.9%NACL 1000ML 1,000 ML IV SCH (08:00)
[2022-02-22 08:20] VITALS: BP 106/51
[2022-02-22 08:49] LABS: MEAN CORPUSCULAR HGB CONC 34.2 g/dL (32.0-36.0); MEAN CORPUSCULAR VOLUME 81.8 fL (79-99); RED BLOOD CELL COUNT(AUTO) 4.4 MIL/uL (4.50-6.20); RED CELL DISTRIBUTION WIDTH 12.9 % (11.0-15.5); WHITE BLOOD COUNT (AUTO) 6.6 K/uL (4.8-10.8)
[2022-02-22 08:55] LABS: CREATININE 0.9 mg/dL (0.5-1.5); POTASSIUM 3.7 mmol/L (3.5-5.1)
[2022-02-22] MEDS ORDERED: METOPROLOL TARTRATE 25 MG TAB PO SCH (09:00)
[2022-02-22] MEDS ORDERED: ASPIRIN 81MG CHEW TAB PO SCH (09:00)
[2022-02-22] MEDS ORDERED: FAMOTIDINE 20MG TAB PO SCH (09:00)
[2022-02-22 11:20] VITALS: BP 115/65
[2022-02-22] MEDS ORDERED: LISI5TAB21 PO (12:18)
[2022-02-22] MEDS ORDERED: AEC81 PO (12:18)
[2022-02-22] MEDS ORDERED: METF-444 PO (12:18)
[2022-02-22] MEDS ORDERED: ATOR20TA65 PO (12:18)
[2022-02-22] MEDS ORDERED: INSU3INS3 SQ (12:18)
[2022-02-22 15:17] VITALS: BP 118/77
[2022-02-22] MEDS ORDERED: INSULIN GLARGINE 100 UNITS/ML 10 ML VIAL SQ SCH (21:00)
[2022-02-22] MEDS ORDERED: ATORVASTATIN 20 MG TABLET PO SCH (21:00)
== END 2022-02-22 16:20 | disposition home or self-care (01) ==
LOC: EDH 19:37 → INTOOBSV 19:38 → EDHIP 19:38 → 3CH 02-22 01:17
PROVIDERS: ADMIT Hospitalist; ATTEND Hospitalist
DX: R07.89 Other chest pain (principal); E11.65 Type 2 diabetes mellitus with hyperglycemia; E87.1 Hypo-osmolality and hyponatremia; E78.5 Hyperlipidemia, unspecified; F31.9 Bipolar disorder, unspecified; F41.9 Anxiety disorder, unspecified; Z90.49 Acquired absence of other specified parts of digestive tract; Z79.899 Other long term (current) drug therapy; Z98.890 Other specified postprocedural states
CPT/HCPCS: 96374; 96361 ×2; 99285; 83036; 82550; 84484 ×3; 80061; 80053; 83880; 85025; 85378; 82948 ×4; 82010; 81001; 36415 ×2; 71045; 70450; 93005 ×2; 96372; 80048; 85027; J1815 ×2; G0378 ×3

== ENCOUNTER 2022-07-10 17:58 | Emergency (ER) | payer MEDICAID ==
[~2022-07-10] VITALS: Ht 167.6 cm; Wt 62.6 kg
[~2022-07-10 17:58] MED LIST: AEC81 PO; ATOR20TA65 PO; IBUP-1493 PO; INSU3INS3 SQ; LISI5TAB21 PO; METF-444 PO
[2022-07-10 18:23] LABS: BASOPHILS % (AUTO) 0.5 % (0.0-5.0); EOSINOPHILS % (AUTO) 3.5 % (0.0-8.0); HEMATOCRIT 39.5 % (42-54); LYMPHOCYTES % (AUTO) 44.3 % (21.0-51.0); MEAN CORPUSCULAR HEMOGLOBIN 27.7 pg (27.0-33.0); MEAN CORPUSCULAR HGB CONC 33.9 g/dL (32.0-36.0); MEAN CORPUSCULAR VOLUME 81.8 fL (79-99); MONOCYTES % (AUTO) 7.9 % (3.0-13.0); NEUTROPHILS % (AUTO) 43.5 % (40.0-77.0); PLATELET COUNT (AUTO) 228 K/uL (130-400); RED BLOOD CELL COUNT(AUTO) 4.83 MIL/uL (4.50-6.20); RED CELL DISTRIBUTION WIDTH 13.7 % (11.0-15.5); WHITE BLOOD COUNT (AUTO) 6.6 K/uL (4.8-10.8)
[2022-07-10 18:40] LABS: ALBUMIN 3.7 g/dL (3.5-5.0); TOTAL PROTEIN, SERUM 7.1 g/dL (6.0-8.3)
[2022-07-10 19:20] VITALS: BP 118/82
[2022-07-10 19:39] LABS: AMPHET/METH SCREEN,URINE NEGATIVE (NEGATIVE); BARBITURATE SCREEN, URINE NEGATIVE (NEGATIVE); BENZODIAZEPINES SCREEN,URINE NEGATIVE (NEGATIVE); CANNABINOID SCREEN,URINE NEGATIVE (NEGATIVE); COCAINE SCREEN,URINE NEGATIVE (NEGATIVE); OPIATE SCREEN,URINE NEGATIVE (NEGATIVE); PHENCYCLIDINE SCREEN,URINE NEGATIVE (NEGATIVE)
[2022-07-10] MEDS ORDERED: DONE10TA43 PO (19:52)
[2022-07-10] MEDS ORDERED: DEUT12TA PO (19:52)
[2022-07-10] MEDS ORDERED: TRAZ-185 PO (19:52)
[2022-07-10] MEDS ORDERED: MECL-160 PO (19:54)
== END 2022-07-10 20:13 | disposition home or self-care (01) ==
LOC: EDH 17:58
DX: R55 Syncope and collapse (principal); F41.9 Anxiety disorder, unspecified; F31.9 Bipolar disorder, unspecified; E11.9 Type 2 diabetes mellitus without complications; E78.00 Pure hypercholesterolemia, unspecified; I10 Essential (primary) hypertension; Z79.1 Long term (current) use of non-steroidal anti-inflammatories (NSAID); Z79.82 Long term (current) use of aspirin; Z79.84 Long term (current) use of oral hypoglycemic drugs; Z79.899 Other long term (current) drug therapy; Z88.0 Allergy status to penicillin; Z90.49 Acquired absence of other specified parts of digestive tract
CPT/HCPCS: 36415; 70450; 71045; 72125; 80053; 80305; 82550; 84484; 85025; 93005

== ENCOUNTER 2022-09-14 22:54 | Observation (INO) | payer MEDICAID ==
[~2022-09-14] VITALS: Ht 175.3 cm; Wt 63.0 kg
[~2022-09-14 22:54] MED LIST changes: +DEUT12TA PO; +DONE10TA43 PO; +MECL-160 PO; +TRAZ-185 PO
[2022-09-14 23:36] LABS: BASOPHILS % (AUTO) 0.1 % (0.0-5.0); EOSINOPHILS % (AUTO) 0.1 % (0.0-8.0); HEMATOCRIT 36.5 % (42-54); LYMPHOCYTES % (AUTO) 16.5 % (21.0-51.0); MEAN CORPUSCULAR HEMOGLOBIN 28.3 pg (27.0-33.0); MEAN CORPUSCULAR HGB CONC 34.2 g/dL (32.0-36.0); MEAN CORPUSCULAR VOLUME 82.6 fL (79-99); MONOCYTES % (AUTO) 2.1 % (3.0-13.0); PLATELET COUNT (AUTO) 241 K/uL (130-400); RED BLOOD CELL COUNT(AUTO) 4.42 MIL/uL (4.50-6.20); RED CELL DISTRIBUTION WIDTH 14.2 % (11.0-15.5); WHITE BLOOD COUNT (AUTO) 8.4 K/uL (4.8-10.8)
[2022-09-14 23:46] LABS: CREATININE 1.1 mg/dL (0.5-1.5); POTASSIUM 3.8 mmol/L (3.5-5.1)
[2022-09-14 23:48] LABS: INR 0.96 (0.85-1.15); PROTHROMBIN TIME 10.5 SEC (9.6-11.6)
[2022-09-14 23:49] LABS: PARTIAL THROMBOPLASTIN TIME 26.4 SEC (26.3-35.5)
[2022-09-14 23:51] LABS: ALBUMIN 3.5 g/dL (3.5-5.0); TOTAL PROTEIN, SERUM 7.2 g/dL (6.0-8.3)
[2022-09-15 01:52] LABS: APPEARANCE,URINE CLEAR (CLEAR); BILIRUBIN,URINE NEGATIVE (NEGATIVE); COLOR,URINE COLORLESS (YELLOW); GLUCOSE, URINE (UA) >=1000 mg/dL (NEGATIVE); KETONES,URINE 5 mg/dL (NEGATIVE); LEUKOCYTE ESTERASE ,URINE NEGATIVE Leu/uL (NEGATIVE); NITRATE,URINE NEGATIVE (NEGATIVE); OCCULT BLOOD,URINE NEGATIVE (NEGATIVE); PH,URINE 6.5 (5.0-8.0); PROTEIN,URINE NEGATIVE (NEGATIVE); UROBILINOGEN,URINE 0.2 mg/dL (0.2-1.0)
[2022-09-15 01:55] LABS: AMPHET/METH SCREEN,URINE NEGATIVE (NEGATIVE); BARBITURATE SCREEN, URINE NEGATIVE (NEGATIVE); BENZODIAZEPINES SCREEN,URINE NEGATIVE (NEGATIVE); CANNABINOID SCREEN,URINE NEGATIVE (NEGATIVE); COCAINE SCREEN,URINE NEGATIVE (NEGATIVE); OPIATE SCREEN,URINE NEGATIVE (NEGATIVE); PHENCYCLIDINE SCREEN,URINE NEGATIVE (NEGATIVE)
[2022-09-15 01:56] LABS: RBC,URINE 0-1 /HPF (0-1); WBC,URINE 0-1 /HPF (0-1)
[2022-09-15] MEDS ORDERED: LACTULOSE 20 GM/30 ML UDCUP PO PRN (04:00)
[2022-09-15] MEDS ORDERED: DiphenhydrAMINE HCL 50 MG/ML VIAL IV PRN (04:00)
[2022-09-15] MEDS ORDERED: ACETAMINOPHEN 325 MG TAB PO PRN ×2 (04:00)
[2022-09-15] MEDS: LACTATED RINGERS 1000ML 1,000 ML IV SCH ×2 (04:11→17:20)
[2022-09-15] MEDS: INSULIN HUMULIN R 100 UNIT/ML 3ML SQ SCH ×3 (07:30→20:58)
[2022-09-15 08:40] VITALS: BP 110/68
[2022-09-15] MEDS: FAMOTIDINE 20MG TAB PO SCH ×2 (09:00→20:56)
[2022-09-15 11:30] VITALS: BP 100/61
[2022-09-15 16:00] VITALS: BP 108/69
[2022-09-15 20:00] VITALS: BP 101/68
[2022-09-15 23:42] VITALS: BP 107/58
[2022-09-16 04:22] VITALS: BP 102/65
[2022-09-16] MEDS: LACTATED RINGERS 1000ML 1,000 ML IV SCH (06:40)
[2022-09-16] MEDS: INSULIN HUMULIN R 100 UNIT/ML 3ML SQ SCH ×2 (07:30→11:30)
[2022-09-16 08:00] VITALS: BP 108/70
[2022-09-16] MEDS: FAMOTIDINE 20MG TAB PO SCH (09:38)
[2022-09-16] MEDS ORDERED: MAGNESIUM 2GM PREMIX 50ML 50 ML IV PRN (10:00)
[2022-09-16] MEDS ORDERED: POTASSIUM CHLORIDE 20MEQ/100ML 100 ML IV PRN (10:00)
[2022-09-16] MEDS ORDERED: POTASSIUM CHLORIDE 10% ELIXIR 20 MEQ/15 ML UDCUP PO PRN (10:00)
[2022-09-16] MEDS ORDERED: KCL 20 MEQ ERTAB PO PRN (10:00)
[2022-09-16 10:37] LABS: HEMATOCRIT 43.3 % (42-54); MEAN CORPUSCULAR HEMOGLOBIN 28.3 pg (27.0-33.0); MEAN CORPUSCULAR HGB CONC 32.8 g/dL (32.0-36.0); MEAN CORPUSCULAR VOLUME 86.4 fL (79-99); RED BLOOD CELL COUNT(AUTO) 5.01 MIL/uL (4.50-6.20); RED CELL DISTRIBUTION WIDTH 14.6 % (11.0-15.5); WHITE BLOOD COUNT (AUTO) 5.3 K/uL (4.8-10.8)
[2022-09-16 10:48] LABS: ALBUMIN 3.7 g/dL (3.5-5.0); CREATININE 0.9 mg/dL (0.5-1.5); POTASSIUM 3.9 mmol/L (3.5-5.1); TOTAL PROTEIN, SERUM 7.5 g/dL (6.0-8.3)
[2022-09-16] MEDS ORDERED: NAPR-1192 PO (11:01)
[2022-09-16] MEDS ORDERED: BENZ-226 PO (11:01)
[2022-09-16] MEDS ORDERED: MEDROL PACK (11:01)
[2022-09-16] MEDS ORDERED: [UNRECOGNIZED DRUG - OTHER] (11:01)
[2022-09-16] MEDS ORDERED: METF-446 PO (11:01)
[2022-09-16] MEDS ORDERED: MONT-39 PO (11:01)
[2022-09-16] MEDS ORDERED: LORA10TA7 PO (11:01)
[2022-09-16] MEDS ORDERED: GABA300C PO (11:01)
[2022-09-16] MEDS ORDERED: RISP0.5T61 PO (11:01)
[2022-09-16] MEDS ORDERED: TAMS-1 PO (11:01)
[2022-09-16] MEDS ORDERED: INSLAN SQ (11:02)
[2022-09-16 12:00] VITALS: BP 117/81
== END 2022-09-16 14:30 | disposition home or self-care (01) ==
LOC: EDH 22:54 → EDHIP 22:55 → INTOOBSV 22:55 → 4AH 09-15 08:40
PROVIDERS: ADMIT Hospitalist; ATTEND Hospitalist
DX: R55 Syncope and collapse (principal); I10 Essential (primary) hypertension; R07.89 Other chest pain; E11.9 Type 2 diabetes mellitus without complications; F41.9 Anxiety disorder, unspecified; F31.9 Bipolar disorder, unspecified; E87.1 Hypo-osmolality and hyponatremia; G23.8 Other specified degenerative diseases of basal ganglia; Z79.82 Long term (current) use of aspirin; Z79.4 Long term (current) use of insulin; Z90.49 Acquired absence of other specified parts of digestive tract; Z79.899 Other long term (current) drug therapy
CPT/HCPCS: 99285; 70450; 71045; 84484; 80053 ×2; 85025; 85610; 85730; 36415 ×2; 93005; 96361; 93880; 96360; 80305; 82948 ×5; 81001; 93306; 97161; 97116; 85027; 93356; 97039; J7120; G0378

== ENCOUNTER 2023-04-01 17:02 | Observation (INO) | payer MEDICAID ==
[~2023-04-01] VITALS: Ht 172.7 cm; Wt 59.9 kg
[~2023-04-01 17:02] MED LIST changes: +BENZ-226 PO; +GABA300C PO; +INSLAN SQ; -INSU3INS3 SQ; +LORA10TA7 PO; -MECL-160 PO; +MECL-302 PO; +MEDROL PACK; -METF-444 PO; +METF-446 PO; +MONT-39 PO; +NAPR-1192 PO; +RISP0.5T61 PO; +TAMS-1 PO; +[UNRECOGNIZED DRUG - OTHER]
[2023-04-01 17:24] LABS: BASOPHILS # (AUTO) 0.03 K/uL (0.00-0.20); BASOPHILS % (AUTO) 0.4 % (0.0-5.0); EOSINOPHILS # (AUTO) 0.05 K/uL (0.00-0.70); EOSINOPHILS % (AUTO) 0.6 % (0.0-8.0); HEMATOCRIT 40.4 % (42-54); IMMATURE GRANULOCYTE ABSOLUTE 0.02 K/uL (0-1); LYMPHOCYTES # (AUTO) 2.8 K/uL (1.0-4.8); LYMPHOCYTES % (AUTO) 32.4 % (21.0-51.0); MEAN CORPUSCULAR HEMOGLOBIN 27.8 pg (27.0-33.0); MEAN CORPUSCULAR HGB CONC 33.4 g/dL (32.0-36.0); MEAN CORPUSCULAR VOLUME 83.1 fL (79-99); MONOCYTES # (AUTO) 0.8 K/uL (0.1-1.0); MONOCYTES % (AUTO) 9.4 % (3.0-13.0); NEUTROPHILS # (AUTO) 4.9 K/uL (1.8-7.7); PLATELET COUNT (AUTO) 243 K/uL (130-400); RED BLOOD CELL COUNT(AUTO) 4.86 MIL/uL (4.50-6.20); RED CELL DISTRIBUTION WIDTH 14.4 % (11.0-15.5); WHITE BLOOD COUNT (AUTO) 8.5 K/uL (4.8-10.8)
[2023-04-01] MEDS ORDERED: LACTATED RINGERS 1000ML 1,000 ML IV ONE (17:30)
[2023-04-01 17:36] LABS: CREATININE 1.1 mg/dL (0.5-1.5); POTASSIUM 3.1 mmol/L (3.5-5.1)
[2023-04-01 17:40] LABS: ALBUMIN 3.4 g/dL (3.5-5.0); BILIRUBIN,TOTAL 1.1 mg/dL (0.2-1.0); MAGNESIUM 1.9 mg/dL (1.80-2.40); TOTAL PROTEIN, SERUM 7.1 g/dL (6.0-8.3)
[2023-04-01 17:53] LABS: SARS-CoV-2, RNA, NAAT NEGATIVE SARS CoV-2 (NEGATIVE)
[2023-04-01 17:55] LABS: INFLUENZA TYPE A Negative For Type A (NEGATIVE); INFLUENZA TYPE B Negative For Type B (NEGATIVE)
[2023-04-01] MEDS ORDERED: ASPIRIN 81MG CHEW TAB PO ONE (18:00)
[2023-04-01] MEDS ORDERED: KCL 20 MEQ ERTAB PO ONE (18:30)
[2023-04-01] MEDS ORDERED: DEXTROSE 50%-WATER 50 ML DISP.SYRIN IV PRN (20:30)
[2023-04-01] MEDS ORDERED: ONDANSETRON 4MG INJ IV PRN (20:30)
[2023-04-01] MEDS ORDERED: NITROGLYCERIN 0.4 MG SL TAB SL PRN (20:30)
[2023-04-01] MEDS ORDERED: KCL 20 MEQ ERTAB PO PRN (20:30)
[2023-04-01] MEDS ORDERED: MAGNESIUM 2GM PREMIX 50ML 50 ML IV PRN (20:30)
[2023-04-01] MEDS ORDERED: ACETAMINOPHEN 325 MG TAB PO PRN ×2 (20:30)
[2023-04-01] MEDS ORDERED: POTASSIUM CHLORIDE 10% ELIXIR 20 MEQ/15 ML UDCUP PO PRN (20:30)
[2023-04-01] MEDS ORDERED: GLUCAGON 1MG KIT 1 MG ML IM PRN (20:30)
[2023-04-01] MEDS ORDERED: POTASSIUM CHLORIDE 20MEQ/100ML 100 ML IV PRN (20:30)
[2023-04-01] MEDS: INSULIN HUMULIN R 100 UNIT/ML 3ML SQ SCH (20:48)
[2023-04-01] MEDS ORDERED: DEUT12TA PO (21:10)
[2023-04-01] MEDS ORDERED: METF-446 PO (21:10)
[2023-04-01] MEDS ORDERED: RISP0.2515 PO (21:10)
[2023-04-01] MEDS: FAMOTIDINE 20MG TAB PO SCH (21:25)
[2023-04-01] MEDS: GUAIFENESIN-DM 200/20 MG 10 ML PO PRN (21:27)
[2023-04-01 21:52] VITALS: BP 133/77; PULSE 84; RESP 18
[2023-04-01] MEDS ORDERED: MECLIZINE HCL 25 MG TABLET PO PRN (22:30)
[2023-04-01 22:40] VITALS: TEMP 98.8
[2023-04-01] MEDS: IPRATROPIUM/ALBUTEROL SULFATE 3 ML SOLUTION IH SCH (23:47)
[2023-04-01 23:52] VITALS: PULSE 68; RESP 18
[2023-04-01 23:53] VITALS: PULSE 68; RESP 18; O2SAT 100
[2023-04-02] VITALS (10 sets, daily range): BP systolic 106–131; BP diastolic 67–82; PULSE 69–86; RESP 16–18; O2SAT 98–99
[2023-04-02] MEDS: IPRATROPIUM/ALBUTEROL SULFATE 3 ML SOLUTION IH SCH ×4 (02:37→13:51)
[2023-04-02] MEDS: GUAIFENESIN-DM 200/20 MG 10 ML PO PRN (05:16)
[2023-04-02 05:38] LABS: HEMATOCRIT 34.8 % (42-54); MEAN CORPUSCULAR HEMOGLOBIN 28.1 pg (27.0-33.0); MEAN CORPUSCULAR HGB CONC 34.2 g/dL (32.0-36.0); MEAN CORPUSCULAR VOLUME 82.1 fL (79-99); RED BLOOD CELL COUNT(AUTO) 4.24 MIL/uL (4.50-6.20); RED CELL DISTRIBUTION WIDTH 14.6 % (11.0-15.5); WHITE BLOOD COUNT (AUTO) 5.6 K/uL (4.8-10.8)
[2023-04-02 06:08] LABS: MAGNESIUM 1.9 mg/dL (1.80-2.40); POTASSIUM 4.1 mmol/L (3.5-5.1); THYROID STIMULATING HORMONE 0.82 uIU/mL (0.36-3.74); TOTAL PROTEIN, SERUM 6.2 g/dL (6.0-8.3)
[2023-04-02] MEDS: INSULIN HUMULIN R 100 UNIT/ML 3ML SQ SCH (06:23)
[2023-04-02] MEDS ORDERED: BENZONATATE 100 MG CAPSULE PO PRN (08:30)
[2023-04-02] MEDS ORDERED: NAPROXEN 375 MG PO PRN (08:30)
[2023-04-02] MEDS ORDERED: AUSTEDO 12 MG PO SCH (09:00)
[2023-04-02] MEDS ORDERED: LORATADINE 10 MG TABLET PO SCH (09:00)
[2023-04-02] MEDS ORDERED: ENOXAPARIN SODIUM 30 MG/0.3 ML SQ SCH (09:00)
[2023-04-02] MEDS ORDERED: GABAPENTIN 300 MG CAPSULE PO SCH (09:00)
[2023-04-02] MEDS ORDERED: TAMSULOSIN HCL 0.4 MG CAP.ER.24H PO SCH (09:00)
[2023-04-02] MEDS ORDERED: ASPIRIN 81 MG EC TAB PO SCH (09:00)
[2023-04-02] MEDS ORDERED: NON-FORMULARY MEDICATION 1 EACH (Metformin HCl 1,000 MG) PO SCH (09:00)
[2023-04-02] MEDS ORDERED: NAPROXEN 250 MG TAB PO PRN (09:00)
[2023-04-02] MEDS: FAMOTIDINE 20MG TAB PO SCH (12:39)
[2023-04-02] MEDS ORDERED: FLU VACC QS2022-23(6MOS UP)/PF 60 MCG/0.5 ML ML IM ONE (16:00)
[2023-04-02] MEDS ORDERED: FLU VACC QS2023-24(6MOS UP)/PF 60 MCG/0.5 ML IM ONE (16:30)
[2023-04-02] MEDS ORDERED: FLU VACC QS2023-24(6MOS UP)/PF 60 MCG/0.5 ML IM SCH (16:30)
[2023-04-02] MEDS ORDERED: METFORMIN HCL 500 MG TABLET PO SCH (17:00)
[2023-04-02] MEDS ORDERED: INSULIN GLARGINE 100 UNITS/ML 10 ML VIAL SQ SCH (21:00)
[2023-04-02] MEDS ORDERED: TRAZODONE HCL 50 MG TAB PO SCH (21:00)
[2023-04-02] MEDS ORDERED: RISPERIDONE 0.5 MG TABLET PO SCH (21:00)
[2023-04-02] MEDS ORDERED: RISPERIDONE 0.25 MG PO SCH (21:00)
[2023-04-02] MEDS ORDERED: NON-FORMULARY MEDICATION 1 EACH (Donepezil HCl 10 MG) PO SCH (21:00)
[2023-04-02] MEDS ORDERED: DONEPEZIL HCL 5 MG TAB PO SCH (21:00)
[2023-04-02] MEDS ORDERED: MONTELUKAST SODIUM 10 MG TAB PO SCH (21:00)
== END 2023-04-02 18:13 | disposition home or self-care (01) ==
LOC: EDH 17:02 → EDHIP 17:03 → 3BH 21:29
PROVIDERS: ADMIT Hospitalist; ATTEND Hospitalist
DX: R07.89 Other chest pain (principal); Z20.822 Contact with and (suspected) exposure to COVID-19; R55 Syncope and collapse; D64.9 Anemia, unspecified; E87.6 Hypokalemia; E11.42 Type 2 diabetes mellitus with diabetic polyneuropathy; E78.00 Pure hypercholesterolemia, unspecified; I10 Essential (primary) hypertension; F31.9 Bipolar disorder, unspecified; F20.9 Schizophrenia, unspecified; J32.9 Chronic sinusitis, unspecified; R05.9 Cough, unspecified; R00.2 Palpitations; F41.9 Anxiety disorder, unspecified; D70.9 Neutropenia, unspecified; G23.8 Other specified degenerative diseases of basal ganglia; Z79.4 Long term (current) use of insulin; Z79.84 Long term (current) use of oral hypoglycemic drugs; Z79.899 Other long term (current) drug therapy; Z98.890 Other specified postprocedural states; Z90.49 Acquired absence of other specified parts of digestive tract; Z79.82 Long term (current) use of aspirin; Z23 Encounter for immunization; Z71.85 Encounter for immunization safety counseling
CPT/HCPCS: 99285; 83735 ×2; 84484 ×4; 80053 ×2; 85025; 87804 ×2; 82948 ×5; 36415 ×2; 87635; 71045; 70450; 93005 ×2; 94640 ×5; 94664; 96372; 84443; 80061; 83880; 85027; 85651; 90658; 90472; 90471; G0378 ×21; C9803; J7120; J1650; 90686; Q2035; Q2038

== ENCOUNTER 2023-09-15 14:31 | Emergency (ER) | payer MEDICAID ==
[~2023-09-15] VITALS: Ht 172.7 cm; Wt 61.2 kg
[~2023-09-15 14:31] MED LIST changes: +ALBU18HF7 IH; -BENZ-226 PO; -IBUP-1493 PO; -MEDROL PACK; -NAPR-1192 PO; +RISP0.2515 PO; -RISP0.5T61 PO; -[UNRECOGNIZED DRUG - OTHER]
[2023-09-15 15:04] LABS: BASOPHILS # (AUTO) 0.02 K/uL (0.00-0.20); BASOPHILS % (AUTO) 0.5 % (0.0-5.0); EOSINOPHILS # (AUTO) 0.03 K/uL (0.00-0.70); EOSINOPHILS % (AUTO) 0.7 % (0.0-8.0); HEMATOCRIT 38.4 % (42-54); IMMATURE GRANULOCYTE ABSOLUTE 0.01 K/uL (0-1); LYMPHOCYTES # (AUTO) 1.6 K/uL (1.0-4.8); LYMPHOCYTES % (AUTO) 35.8 % (21.0-51.0); MEAN CORPUSCULAR HEMOGLOBIN 26.9 pg (27.0-33.0); MEAN CORPUSCULAR HGB CONC 32.8 g/dL (32.0-36.0); MEAN CORPUSCULAR VOLUME 82.1 fL (79-99); MONOCYTES # (AUTO) 0.4 K/uL (0.1-1.0); MONOCYTES % (AUTO) 8.1 % (3.0-13.0); NEUTROPHILS # (AUTO) 2.4 K/uL (1.8-7.7); NEUTROPHILS % (AUTO) 54.7 % (40.0-77.0); PLATELET COUNT (AUTO) 232 K/uL (130-400); RED BLOOD CELL COUNT(AUTO) 4.68 MIL/uL (4.50-6.20); RED CELL DISTRIBUTION WIDTH 14.2 % (11.0-15.5); WHITE BLOOD COUNT (AUTO) 4.3 K/uL (4.8-10.8)
[2023-09-15 15:21] LABS: APPEARANCE,URINE CLEAR (CLEAR); BILIRUBIN,URINE NEGATIVE (NEGATIVE); COLOR,URINE COLORLESS (YELLOW); GLUCOSE, URINE (UA) NEGATIVE (NEGATIVE); KETONES,URINE NEGATIVE (NEGATIVE); LEUKOCYTE ESTERASE ,URINE NEGATIVE Leu/uL (NEGATIVE); NITRATE,URINE NEGATIVE (NEGATIVE); OCCULT BLOOD,URINE NEGATIVE (NEGATIVE); PH,URINE 6.5 (5.0-8.0); PROTEIN,URINE NEGATIVE (NEGATIVE); UROBILINOGEN,URINE 0.2 mg/dL (0.2-1.0)
[2023-09-15 15:35] LABS: CREATININE 0.8 mg/dL (0.5-1.3); POTASSIUM 3.7 mmol/L (3.5-5.1)
[2023-09-15 15:39] LABS: ALBUMIN 3.9 g/dL (3.5-5.0); BILIRUBIN,TOTAL 1.3 mg/dL (0.2-1.0); MAGNESIUM 2.1 mg/dL (1.80-2.40); TOTAL PROTEIN, SERUM 7.4 g/dL (6.0-8.3)
[2023-09-15 15:41] LABS: ADD UA MICROSCOPIC YES
[2023-09-15 15:44] LABS: BACTERIA,URINE None Seen /HPF (None Seen); RBC,URINE 0-1 /HPF (0-1); SQUAMOUS EPITHELIAL CELL,UR None Seen /HPF (0-2); WBC,URINE 0-1 /HPF (0-1)
[2023-09-15 16:11] VITALS: BP 121/67; PULSE 62; RESP 16; O2SAT 100
== END 2023-09-15 16:52 | disposition home or self-care (01) ==
LOC: EDH 14:31
DX: R07.89 Other chest pain (principal)
CPT/HCPCS: 36415; 71045; 80053; 81001; 83735; 84484; 85025; 93005

== ENCOUNTER → 2024-06-21 | Outpatient (CLI) | payer OTHER, MEDICARE ==
[~2024-06-21] MED LIST changes: +IOHEXOL-350 75 ML VIAL IV ONE
[2024-06-21 16:05] LABS: POC CREATININE 1.1 mg/dL (0.7-1.3)
--- NOTE | 2024-06-21 16:48 | HMCIMG ---
CT CHEST W/WO CONTRAST HISTORY: Chronic cough COMPARISON: 06/03/2022 . TECHNIQUE: Multiple sequential axial images of the chest were obtained from the thoracic inlet through upper abdomen. Patient was given 75 cc of Omnipaque through intravenous route. FINDINGS: There is no evidence of pulmonary nodule or parenchymal disease. Bibasilar linear atelectasis changes are seenNo pleural effusion or pericardial effusion is seen. There is no evidence of pneumothorax. There are normal size mediastinal and hilar lymph nodes. The heart is not enlarged. Degenerative changes of the thoracolumbar spine are present. There is no evidence of adrenal nodule. IMPRESSION: 1. No evidence of pulmonary nodule or effusion is seen. CT was performed with one or more following dose reduction techniques: automated exposure control, adjustment of the mA and kv according to patient's size, or use of a iterative reconstruction technique.
== END | disposition home or self-care (01) ==
LOC: RAH 14:31
PROVIDERS: ATTEND Family Medicine
DX: J98.11 Atelectasis (principal); R05.3 Chronic cough; M47.815 Spondylosis without myelopathy or radiculopathy, thoracolumbar region; Z72.0 Tobacco use
CPT/HCPCS: 71270; 82565; 36415; Q9967

== ENCOUNTER 2025-01-08 13:59 | Emergency (ER) | payer OTHER, MEDICAID ==
[~2025-01-08] VITALS: Ht 188 cm; Wt 78.9 kg
[~2025-01-08 13:59] MED LIST changes: -IOHEXOL-350 75 ML VIAL IV ONE; -TAMS-1 PO; +TAMS-55 PO
--- NOTE | 2025-01-08 14:17 | NUR ---
SHORT SYNCOPAL EPISODE WHILE IN BED, RECOVERED ON HIS OWN WITHIN 15 SECONDS. BACK TO BASELINE. PER SO AT BEDSIDE, PT HAS HAD MANY SYNCOPAL EPISODE OVER THE PAST 5 YRS
[2025-01-08 14:32] LABS: IMMATURE GRANULOCYTE ABSOLUTE 0.01 K/uL (0-1); NUCLEATED RED BLOOD CELLS 0.0 % (0.0-0.19); PLATELET COUNT (AUTO) 202 K/uL (130-400); RED BLOOD CELL COUNT(AUTO) 4.60 MIL/uL (4.50-6.20); RED CELL DISTRIBUTION WIDTH 13.1 % (11.0-15.5); WHITE BLOOD COUNT (AUTO) 5.8 K/uL (4.8-10.8)
[2025-01-08 14:53] LABS: CREATINE KINASE, TOTAL 73.0 U/L (21-232); CREATININE 0.8 mg/dL (0.5-1.3); GLOMERULAR FILTR. RATE CALC 98.0 mL/min (>90); GLUCOSE,RANDOM 250.0 mg/dL (70-105); SODIUM SERUM 138.0 mmol/L (136-145); UREA NITROGEN, BLOOD 21.0 mg/dL (7-18)
--- NOTE | 2025-01-08 14:58 | HMCIMG ---
EXAM: CT Head Without IV contrast. CLINICAL HISTORY: fall TECHNIQUE: Axial computed tomography images of the head/brain without intravenous contrast. COMPARISON: Study dated 04/01/23. FINDINGS: BRAIN: Stable multifocal symmetrical areas of calcification in bilateral fronto-parietal lobes, bilateral basal ganglia, thalamus, and bilateral cerebrum. No evidence of acute hemorrhage. No CT evidence for acute territorial infarct. No midline shift or extra-axial collections. VENTRICLES: No hydrocephalus. ORBITS: The orbits are unremarkable. SINUSES AND MASTOIDS: The paranasal sinuses and mastoid air cells are clear. BONES: No fracture. SOFT TISSUES: Unremarkable. IMPRESSION: 1. No acute intracranial findings. 2. 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 /[place]
--- NOTE | 2025-01-08 15:02 | HMCIMG ---
EXAM: CT Cervical Spine Without IV contrast. CLINICAL HISTORY: fall TECHNIQUE: Axial computed tomography images of the cervical spine without intravenous contrast. Sagittal and coronal reformatted images were generated. COMPARISON: Study dated 07/10/22. FINDINGS: ALIGNMENT: Bony alignment is anatomic. DEGENERATIVE CHANGES: Cervical spondylosis is evident by anterior osteophytes, and uncovertebral joint hypertrophy. There is mild to moderate multilevel degenerative disc disease, more pronounced at C5-C7. No significant canal stenosis or neural foraminal narrowing is evident. SOFT TISSUES: The prevertebral soft tissues are within normal limits. BONES: No acute fracture or aggressive appearing osseous lesion. IMPRESSION: 1. No acute cervical spine osseous injury. 2. Mild to moderate degenerative changes which are more pronounced in the lower cervical spine. /[place]
[2025-01-08] MEDS: 0.9%NACL 1000ML 1,000 ML IV ONE (17:11)
[2025-01-08 17:48] LABS: AMPHET/METH SCREEN,URINE NEGATIVE (NEGATIVE); BARBITURATE SCREEN, URINE NEGATIVE (NEGATIVE); CANNABINOID SCREEN,URINE NEGATIVE (NEGATIVE); COCAINE SCREEN,URINE NEGATIVE (NEGATIVE)
--- NOTE | 2025-01-08 18:20 | ERN ---
General Chief Complaint: Mechanical Fall Stated Complaint: FALL, HEAD INJURY, NECK INJURY Time Seen by MD: 17:51 History of Present Illness Initial Comments 64-year-old male came in for syncopal episode. Patient otherwise has no concerns. Allergies: Coded Allergies: Penicillins (Unverified Allergy, Unknown, 05/22/19) Home Meds Active Scripts Atorvastatin Calcium (Atorvastatin Calcium) 20 Mg Tablet, 20 MG PO HS, #30 TAB 2 Refills Prov:SAJAN REALO O [facility] 02/22/22 Lisinopril (Lisinopril) 5 Mg Tablet, 5 MG PO DAILY, #30 TAB 2 Refills Prov:ADDIECLIFF O [facility] 02/22/22 Aspirin (ASPIRIN 81 MG ECTAB) 81 Mg Ectab, 81 MG PO DAILY, #30 TAB.EC 2 Refills Prov:CLIFF REAL O [facility] 02/22/22 Reported Medications Albuterol Sulfate (Ventolin Hfa) 90 Mcg Hfa.aer.ad, 18 GM IH BID, INHALER 06/29/23 Risperidone (Risperidone) 0.25 Mg Tablet, 0.25 MG PO HS, TAB 04/01/23 Deutetrabenazine (Austedo) 12 Mg Tablet, 12 MG PO BID, TAB 04/01/23 Insulin Glargine,Hum.rec.anlog (Lantus) 100 Units/Ml Inj, 20 UNITS SQ HS, ML 09/16/22 Loratadine (Loratadine) 10 Mg Tablet, 10 MG PO DAILY, TAB 09/16/22 Montelukast Sodium (Montelukast Sodium) 10 Mg Tablet, 10 MG PO HS, TAB 09/16/22 Gabapentin (Neurontin) 300 Mg Capsule, 300 MG PO TID, CAP 09/16/22 Tamsulosin HCl (Flomax) 0.4 Mg Cap.er.24h, 0.4 MG PO DAILY, CAPSULE. 09/16/22 Metformin HCl (Metformin HCl) 1,000 Mg Tablet, 1000 MG PO BIDLUNCHDINNER, TAB 09/16/22 Meclizine HCl (Meclizine HCl) 25 Mg Tablet, 25 MG PO TIDP PRN for VERTIGO, TAB 07/10/22 Donepezil HCl (Donepezil HCl) 10 Mg Tablet, 10 MG PO HS, TAB 07/10/22 Trazodone HCl (Trazodone HCl) 50 Mg Tablet, 50 MG PO HS, TAB 07/10/22 Past Medical History Past Medical History: Anxiety, Diabetes-Type II, High Cholesterol, Hypertension Medical History Other: VIRTIGO, NEUROPATHY Past Surgical History: Other Surgical History Other: ABD SX Family History Family History: Negative Social History Social History: Negative, Lives with family ROS Dictation Syncope Physical Exam General Appearance: (+) no apparent distress Orientation: (+) alert, (+) oriented x 3 Ear, Nose, Throat: (+) hearing grossly normal Neck: (+) normal inspection, (+) supple Respiratory: (+) chest non-tender, (+) lungs clear Heart: (+) regular, (+) no gallop Vascular: (+) no edema, (+) normal peripheral pulse Gastrointestinal: (+) soft, (+) non-tender, (+) no organomegaly, (+) bowel sound present Back: (+) normal inspection Extremities: (+) normal range of motion, (+) non-tender Results Laboratory and Microbiology Lab and Micro Result Laboratory Tests Test 01/08/25 14:08 01/08/25 14:13 01/08/25 17:14 Whole Blood Glucose 275 MG/DL (70-110) H Bedside Glucose Comment Notified Nurse White Blood Count 5.8 K/uL (4.8-10.8) Red Blood Count 4.60 MIL/uL (4.50-6.20) Hemoglobin 13.7 g/dL (14.0-18.0) L Hematocrit 38.8 % (42-54) L Mean Corpuscular Volume 84.3 fL (79-99) Mean Corpuscular Hemoglobin 29.8 pg (27.0-33.0) Mean Corpuscular Hemoglobin Concent 35.3 g/dL (32.0-36.0) Red Cell Distribution Width 13.1 % (11.0-15.5) Platelet Count 202 K/uL (130-400) Mean Platelet Volume 10.1 fL (7.5-10.5) Immature Granulocyte % (Auto) 0.2 % (0-1) Neutrophils (%) (Auto) 54.3 % (40.0-77.0) Lymphocytes (%) (Auto) 35.9 % (21.0-51.0) Monocytes (%) (Auto) 7.4 % (3.0-13.0) Eosinophils (%) (Auto) 1.7 % (0.0-8.0) Basophils (%) (Auto) 0.5 % (0.0-5.0) Neutrophils # (Auto) 3.2 K/uL (1.8-7.7) Lymphocytes # (Auto) 2.1 K/uL (1.0-4.8) Monocytes # (Auto) 0.4 K/uL (0.1-1.0) Eosinophils # (Auto) 0.10 K/uL (0.00-0.70) Basophils # (Auto) 0.03 K/uL (0.00-0.20) Absolute Immature Granulocyte (auto 0.01 K/uL (0-1) Nucleated Red Blood Cells 0.0 % (0.0-0.19) Sodium Level 138 mmol/L (136-145) Potassium Level 4.0 mmol/L (3.5-5.1) Chloride Level 103 mmol/L (101-111) Carbon Dioxide Level 25 mmol/L (21-32) Blood Urea Nitrogen 21 mg/dL (7-18) H Creatinine 0.8 mg/dL (0.5-1.3) Glomerular Filtration Rate Calc 98 mL/min (>90) Random Glucose 250 mg/dL (70-105) H Total Calcium 8.4 mg/dL (8.5-10.1) L Magnesium Level 1.80 mg/dL (1.80-2.40) Total Creatine Kinase 73 U/L (21-232) # Troponin I High Sensitivity 5 ng/L (4-75) B-Type Natriuretic Peptide 20 pg/mL (0-100) Urine Opiates Screen NEGATIVE (NEGATIVE) Urine Barbiturates Screen NEGATIVE (NEGATIVE) Urine Phencyclidine Screen NEGATIVE (NEGATIVE) Urine Amphetamines Screen NEGATIVE (NEGATIVE) Urine Benzodiazepines Screen NEGATIVE (NEGATIVE) Urine Cocaine Screen NEGATIVE (NEGATIVE) Urine Marijuana (THC) Screen NEGATIVE (NEGATIVE) MDM All labs and imaging discussed with patient in detail. Patient states that he feels better and would like to the to be discharged. Patient is a instructed to follow up with the primary care physician. Patient will be discharged home to follow up with the mammary care physician tomorrow morning. Patient is in his in his agrees with the plan of care. ED Course Orders Procedure Category Date Status Time 12 Lead Ekg Tracing- EKG 01/08/25 Logged Technical 14:09 B-Type Natriuretic LAB 01/08/25 Complete Peptide 14:09 Basic Metabolic Panel LAB 01/08/25 Complete 14:09 Cbc With Differential LAB 01/08/25 Complete 14:09 Creatine Kinase, Total LAB 01/08/25 Complete 14:09 Drug Screen Urine LAB 01/08/25 Complete 14:09 Magnesium LAB 01/08/25 Complete 14:09 Troponin I High LAB 01/08/25 Complete Sensitivity 14:09 Ct Head/Brain W/O CT 01/08/25 Resulted Contrast 14:09 Ct Cervical Spine W/O CT 01/08/25 Resulted Contrast 14:09 Morphine 2mg Syg PHA 01/08/25 Complete (Morphine 2mg Syg) 16:00 Ondansetron 4mg Inj PHA 01/08/25 Complete (Zofran 4mg Inj) 15:31 0.9%Nacl 1000ml (Ns PHA 01/08/25 Complete 1000ml) 16:30 Current Medications Medications (Trade) Dose Ordered Sig/Livia Route PRN Reason Start Time Stop Time Status Last Admin Dose Admin Morphine Sulfate (morPHINE 2MG SYG) 2 mg STAT ONCE IVP 01/08/25 16:00 01/08/25 16:01 DC 01/08/25 15:44 Ondansetron HCl (zoFRAN 4MG INJ) 4 mg STAT STAT IVP 01/08/25 15:31 01/08/25 15:35 DC 01/08/25 15:44 Sodium Chloride 1,000 ml @ 0 mls/hr ONCE ONCE IV 01/08/25 16:30 01/08/25 16:31 DC 01/08/25 17:11 Vital Signs Date Time Temp Pulse Resp B/P (MAP) Pulse Ox O2 Delivery O2 Flow Rate FiO2 01/08/25 17:00 67 18 124/62 99 Room Air* 0 01/08/25 16:00 98.4 69 18 128/79 98 Room Air* 0 01/08/25 15:00 98.4 72 16 126/82 96 Room Air* 0 01/08/25 14:17 72 16 137/85 99 Room Air* 0 01/08/25 14:00 98.4 79 16 117/77 96 Room Air 0 DX & DISP Disposition: Discharge Departure Impression: Primary Impression: Syncope Condition: Stable Referrals: DEMI PERKINS MD (PCP) RL CLAROS MD Jan 08, 2025 18:20
[2025-01-08 18:29] VITALS: BP 120/61; PULSE 69; RESP 18; TEMP 98.3; O2SAT 99
--- NOTE | 2025-01-09 07:00 | EKG ---
[facility] Test Date: 2025-01-08 Test Time: 14:12:20 Pat Name: JOSÉ MIGUEL COREY Department: [facility] Room: Gender: Youth Probation Officer: [id number] : 1960 Requested By: OXANA WHITMORE Order Number: [id number] Reading MD: Ed Monzon Measurements Intervals [place] Rate: 70 P: 29 CA: 198 QRS: 47 QRSD: 68 T: 48 QT: 366 QTc: 397 Interpretive Statements Sinus rhythm Compared to ECG 09/15/2023 14:30:31 No significant changes Electronically Signed On 01-09-2025 17:23:37 CDT by Ed Monzon Please click the below link to view image of tracing.
== END 2025-01-08 18:30 | disposition home or self-care (01) ==
LOC: EDH 13:59
DX: R55 Syncope and collapse (principal); E11.40 Type 2 diabetes mellitus with diabetic neuropathy, unspecified; E78.00 Pure hypercholesterolemia, unspecified; F41.9 Anxiety disorder, unspecified; I10 Essential (primary) hypertension; Z79.82 Long term (current) use of aspirin; Z79.899 Other long term (current) drug therapy; Z88.0 Allergy status to penicillin
CPT/HCPCS: 99285; 70450; 96374; 96375; 82550; 83735; 84484; 80048; 83880; 80305; 85025; 82948; 36415; 72125; 93005; J2270; J2405

== ENCOUNTER 2025-02-17 19:50 | Emergency (ER) | payer MEDICARE, MEDICAID ==
[~2025-02-17] VITALS: Ht 172.7 cm; Wt 59.6 kg
--- NOTE | 2025-02-17 19:55 | NUR ---
UA CUP PROVIDED
--- NOTE | 2025-02-17 19:55 | NUR ---
COVID AND FLU SWABS COLLECTED AND SENT
--- NOTE | 2025-02-17 20:03 | EKG ---
[facility] Test Date: 2025-02-17 Test Time: 19:55:54 Pat Name: JOSÉ MIGUEL COREY Department: [facility] Room: Gender: M Sander And Polisher: 08 : 1960 Requested By: RIDGE TAO Order Number: [id number] Reading MD: Anthony Gonzales Measurements Intervals [place] Rate: 68 P: 7 MA: 198 QRS: 53 QRSD: 75 T: 54 QT: 380 QTc: 405 Interpretive Statements Sinus rhythm Compared to ECG 01/08/2025 14:12:20 No significant changes Electronically Signed On 02-18-2025 16:10:35 CDT by Anthony Gonzales Please click the below link to view image of tracing.
--- NOTE | 2025-02-17 20:04 | NUR ---
TRIAGE EDIT TO ENTER V/S
[2025-02-17 20:23] LABS: IMMATURE GRANULOCYTE ABSOLUTE 0.02 K/uL (0-1); NUCLEATED RED BLOOD CELLS 0.0 % (0.0-0.19); PLATELET COUNT (AUTO) 240 K/uL (130-400); RED BLOOD CELL COUNT(AUTO) 4.68 MIL/uL (4.50-6.20); RED CELL DISTRIBUTION WIDTH 12.8 % (11.0-15.5); WHITE BLOOD COUNT (AUTO) 6.6 K/uL (4.8-10.8)
[2025-02-17 20:29] LABS: SARS-CoV-2, RNA, NAAT NEGATIVE SARS CoV-2 (NEGATIVE)
[2025-02-17 20:34] LABS: INFLUENZA TYPE A Negative For Type A (NEGATIVE); INFLUENZA TYPE B Negative For Type B (NEGATIVE)
--- NOTE | 2025-02-17 20:38 | ERN ---
ED Note History of Present Illness Stated Complaint: SOB, DIZZINESS, COUGH, BODY LOCKS UP Chief Complaint: Multiple Complaints Time Seen by MD: 20:33 Dictation: This is a 64-year-old male who presented to the emergency room with family members complaining of a chronic cough for 4 years shortness of breath and dizziness that started around 30 minutes ago. Patient is a heavy smoker with known history of COPD family members indicated that he had some" blackout". He has a known history of vertigo in the dizziness does get affected by changing the physicians. No nausea vomitings diarrhea. No fever chills or rigors. Temperature 98 pulse 83 respirations 30 blood pressure 128/25 with a pulse oximetry of 99% on room air Chronic medical problems include diabetes mellitus type 2, hypertension, hypercholesterolemia, vertigo, history of COPD baseline pulmonary function not known, active cigarette smoker. 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 02/22/22 Lisinopril (Lisinopril) 5 Mg Tablet, 5 MG PO DAILY, #30 TAB 2 Refills Prov:[facility] 02/22/22 Aspirin (ASPIRIN 81 MG ECTAB) 81 Mg Ectab, 81 MG PO DAILY, #30 TAB.EC 2 Refills Prov:[facility] 02/22/22 Reported Medications Albuterol Sulfate (Ventolin Hfa) 90 Mcg Hfa.aer.ad, 18 GM IH BID, INHALER 06/29/23 Risperidone (Risperidone) 0.25 Mg Tablet, 0.25 MG PO HS, TAB 04/01/23 Deutetrabenazine (Austedo) 12 Mg Tablet, 12 MG PO BID, TAB 04/01/23 Insulin Glargine,Hum.rec.anlog (Lantus) 100 Units/Ml Inj, 20 UNITS SQ HS, ML 09/16/22 Loratadine (Loratadine) 10 Mg Tablet, 10 MG PO DAILY, TAB 09/16/22 Montelukast Sodium (Montelukast Sodium) 10 Mg Tablet, 10 MG PO HS, TAB 09/16/22 Gabapentin (Neurontin) 300 Mg Capsule, 300 MG PO TID, CAP 09/16/22 Tamsulosin HCl (Flomax) 0.4 Mg Cap.er.24h, 0.4 MG PO DAILY, CAPSULE. 09/16/22 Metformin HCl (Metformin HCl) 1,000 Mg Tablet, 1000 MG PO BIDLUNCHDINNER, TAB 09/16/22 Meclizine HCl (Meclizine HCl) 25 Mg Tablet, 25 MG PO TIDP PRN for VERTIGO, TAB 07/10/22 Donepezil HCl (Donepezil HCl) 10 Mg Tablet, 10 MG PO HS, TAB 07/10/22 Trazodone HCl (Trazodone HCl) 50 Mg Tablet, 50 MG PO HS, TAB 07/10/22 Past Medical History Past Medical History: Anxiety, COPD, Diabetes-Type II, High Cholesterol, Hypertension Additional Past Medical Hx: VIRTIGO, NEUROPATHY Surgical History: Cholecystectomy, Other Family History: Negative Social History: Smokers, Lives with family RN Note Reviewed/Agreed w/PFSH: Yes Review of System Dictation Constitutional: Negative for fever,chills, and weight loss Eyes: Negative for injury, pain,redness, and discharge ENT: Negative for injury,pain or swelling Cardiovascular: Negative for chest pain, palpitations, and edema positive for dizziness Respiratory: Positive for shortness of breath, cough, Abdomen/GI: Negative for abdominal pain, nausea, vomiting, diarrhea, and constipation Back: Negative for injury and pain : Negative for injury, bleeding and discharge MS/Extremity: Negative for injury and deformity Skin: Negative for rash, and discoloration Neuro: Negative for headache, weakness, numbness, tingling, and seizure Psych: Negative for suicide ideation, homicidal ideation, and hallucinations Initial Vital Sign VS Vital Signs Date Time Temp Pulse Resp B/P (MAP) Pulse Ox O2 Delivery O2 Flow Rate FiO2 02/17/25 19:52 98.1 83 32 128/75 99 Room Air 02/17/25 20:17 0 21 Physical Exam Dictation General: awake, alert, NAD thin male who answers simple questions appropriately Head/Face: Normocephalic, atraumatic Eyes: PERRL, EOMI, vision at baseline ENT: oral cavity clear, TMs clear, no signs of infection Neck: Trachea midline, supple, no nuchal rigidity Cardiovascular: RRR, normal S1/S2, No MRGs, no JVD Respiratory: Decreased breath sounds prolonged expiratory phase Abdomen: Soft, non-tender, non-distended, normal bowel sounds, no guarding or rebound. Skin: Warm, dry, normal turgor, no rash MS/Extremity: Pulses equal, no cyanosis, neurovascular intact, FROM Neuro: COAx4, GCS 15, strength 5/5, CN 2-12 intact, normal cerebellar exam, normal gait, Psych: Normal behavior, mood, and affect normal Extremities-trace edema without any palpable cords, Homans sign is negative Results (Laboratory/Radiology) Laboratory/Radiology Laboratory Tests Test 02/17/25 19:33 02/17/25 20:14 02/17/25 20:51 02/17/25 21:33 Influenza Type A Antigen Negative For Type A Influenza Type B Antigen Negative For Type B SARS-CoV-2, RNA, NAAT NEGATIVE SARS CoV-2 White Blood Count 6.6 K/uL (4.8-10.8) Red Blood Count 4.68 MIL/uL (4.50-6.20) Hemoglobin 14.1 g/dL (14.0-18.0) Hematocrit 39.6 % (42-54) L Mean Corpuscular Volume 84.6 fL (79-99) Mean Corpuscular Hemoglobin 30.1 pg (27.0-33.0) Mean Corpuscular Hemoglobin Concent 35.6 g/dL (32.0-36.0) Red Cell Distribution Width 12.8 % (11.0-15.5) Platelet Count 240 K/uL (130-400) Mean Platelet Volume 10.5 fL (7.5-10.5) Immature Granulocyte % (Auto) 0.3 % (0-1) Neutrophils (%) (Auto) 50.3 % (40.0-77.0) Lymphocytes (%) (Auto) 36.6 % (21.0-51.0) Monocytes (%) (Auto) 10.1 % (3.0-13.0) Eosinophils (%) (Auto) 2.4 % (0.0-8.0) Basophils (%) (Auto) 0.3 % (0.0-5.0) Neutrophils # (Auto) 3.3 K/uL (1.8-7.7) Lymphocytes # (Auto) 2.4 K/uL (1.0-4.8) Monocytes # (Auto) 0.7 K/uL (0.1-1.0) Eosinophils # (Auto) 0.16 K/uL (0.00-0.70) Basophils # (Auto) 0.02 K/uL (0.00-0.20) Absolute Immature Granulocyte (auto 0.02 K/uL (0-1) Nucleated Red Blood Cells 0.0 % (0.0-0.19) Sodium Level 134 mmol/L (136-145) L Potassium Level 4.8 mmol/L (3.5-5.1) Chloride Level 98 mmol/L (101-111) L Carbon Dioxide Level 27 mmol/L (21-32) Blood Urea Nitrogen 19 mg/dL (7-18) H Creatinine 0.9 mg/dL (0.5-1.3) Glomerular Filtration Rate Calc 95 mL/min (>90) Random Glucose 420 mg/dL (70-105) *H Total Calcium 8.5 mg/dL (8.5-10.1) Total Creatine Kinase 209 U/L (21-232) # Troponin I High Sensitivity 6 ng/L (4-75) Urine Color LIGHT-YELLOW (YELLOW) Urine Appearance CLEAR (CLEAR) Urine pH 5.0 (5.0-8.0) Urine Specific [place] 1.034 (1.001-1.031) Urine Protein NEGATIVE mg/dL (NEGATIVE) Urine Glucose (UA) >=1000 mg/dL (NEGATIVE) H Urine Ketones NEGATIVE mg/dL (NEGATIVE) Urine Occult Blood NEGATIVE (NEGATIVE) Urine Nitrate NEGATIVE (NEGATIVE) Urine Bilirubin NEGATIVE mg/dL (NEGATIVE) Urine Urobilinogen 0.2 mg/dL (0.2-1.0) Urine Leukocyte Esterase NEGATIVE [place]/uL Urine RBC 0-1 /HPF (0-1) Urine WBC 0-1 /HPF (0-1) Urine Bacteria None /HPF (None Seen) Whole Blood Glucose 302 MG/DL (70-110) H Test 02/17/25 22:42 Whole Blood Glucose 266 MG/DL (70-110) H Labs Reviewed?: Yes X-RAY Comment: REASON: CHEST PAIN ORDERING PHYSICIAN: RIDGE TAO MD PROCEDURE: CXR1VW - CHEST 1VW EXAM: CR Chest, 1 View. CLINICAL HISTORY: CHEST PAIN COMPARISON: None provided. FINDINGS: LUNGS: The lungs show no infiltrate or other acute finding. PLEURAL SPACES: No pleural effusion or pneumothorax. MEDIASTINUM: The cardiomediastinal silhouette is within normal limits. BONES: No aggressive appearing osseous lesion seen. IMPRESSION: No acute cardiopulmonary pathology is evident. /[place] DICTATED BY: DARIANA GEORGE Jr., MD DATE: 02/17/252202 ELECTRONICALLY SIGNED BY: DARIANA GEORGE Jr., MD DATE: 02/17/252202 Ultrasound Comment: Echocardiogram Conclusion Left ventricular cavity size is normal.LVEF is 55-60%. The right ventricle is normal size.The right ventricular systolic function is normal. The left atrium size is normal.The right atrium size is normal. No valvular pathology. The pericardium appears normal. No pericardial effusion. DICTATED BY: SOURAV VILLARREAL MD DATE: 09/16/22856 ELECTRONICALLY SIGNED BY: SOURAV VILLARREAL MD DATE: 09/16/221840 ED Course ED Course Orders Procedure Category Date Status Time Vital Signs Per CPOE 02/17/25 Transmitted Routine 19:54 Chest 1vw RAD 02/17/25 Resulted 19:54 12 Lead Ekg Tracing- EKG 02/17/25 Resulted Technical 19:54 Oxygen By Nc/Pulse Ox CPOE 02/17/25 Transmitted 19:54 Maintain Iv CPOE 02/17/25 Transmitted 19:54 Iv Insertion CPOE 02/17/25 Transmitted 19:54 Cardiac Monitoring CPOE 02/17/25 Transmitted 19:54 Pulse Oximetry With CPOE 02/17/25 Transmitted Vs And Prn 19:54 Cbc With Differential LAB 02/17/25 Complete 19:54 Activity: Br W/Brp CPOE 02/17/25 Transmitted With Assist 19:54 Creatine Kinase, Total LAB 02/17/25 Complete 19:54 Troponin I High LAB 02/17/25 Complete Sensitivity 19:54 Urinalysis Profile LAB 02/17/25 Complete 19:54 Basic Metabolic Panel LAB 02/17/25 Complete 19:54 Covid Rna Naat LAB 02/17/25 Complete 19:54 Influenza Type A & B, LAB 02/17/25 Complete Rapid 19:54 0.9%Nacl 1000ml (Ns PHA 02/17/25 Complete 1000ml) 21:00 0.9%Nacl 1000ml (Ns PHA 02/17/25 Complete 1000ml) 21:30 Ipratropium/Albuterol PHA 02/17/25 Complete Neb (Duoneb) 21:30 Random Accucheck At CPOE 02/17/25 Transmitted Bedside 21:30 Current Medications Medications (Trade) Dose Ordered Sig/Livia Route PRN Reason Start Time Stop Time Status Last Admin Dose Admin Albuterol (DUOneb) 1 UDVIAL ONCE ONCE IH 02/17/25 21:30 02/17/25 21:41 DC 02/17/25 22:18 Sodium Chloride 1,000 ml @ 0 mls/hr ONCE ONCE IV 02/17/25 21:00 02/17/25 21:01 DC 02/17/25 20:49 Sodium Chloride 1,000 ml @ 0 mls/hr ONCE ONCE IV 02/17/25 21:30 02/17/25 21:41 DC 02/17/25 21:43 Vital Signs Date Time Temp Pulse Resp B/P (MAP) Pulse Ox O2 Delivery O2 Flow Rate FiO2 02/18/25 00:07 97.7 87 17 132/75 100 Room Air* 0 02/17/25 23:15 97.7 83 18 128/77 100 Room Air* 0 02/17/25 22:18 62 18 02/17/25 22:15 97.5 86 19 129/74 100 Room Air* 0 21 02/17/25 21:15 97.9 81 16 130/74 100 Room Air* 0 21 02/17/25 20:17 97.9 83 19 135/78 100 Room Air* 0 02/17/25 19:52 98.1 83 32 128/75 99 Room Air We will perform diagnostic labs, imaging and administer medications according to the patient's complaint. Once the results are available, will review and personally interpreted the labs to rule out any acute life-threatening emergency the trach require immediate intervention and treatment. I will then re-evaluate the patient after treatment and diagnostic exams have return to determine whether the patient requires any further testing, can safely be discharged home or need further admission to hospital for additional treatment and evaluation. Medical Decision Making MDM Differential diagnosis: Dehydration, vasovagal syncope, seizures, cardiac event This is a 64-year-old male who presented to the emergency room with family members complaining of a chronic cough for 4 years shortness of breath and dizziness that started around 30 minutes ago. Patient is a heavy smoker with known history of COPD family members indicated that he had some" blackout". He has a known history of vertigo in the dizziness does get affected by changing the physicians. No nausea vomitings diarrhea. No fever chills or rigors. Temperature 98 pulse 83 respirations 30 blood pressure 128/25 with a pulse oximetry of 99% on room air Chronic medical problems include diabetes mellitus type 2, hypertension, hypercholesterolemia, vertigo, history of COPD baseline pulmonary function not known, active cigarette smoker. 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 labs reviewed CBC is with a normal limits BNP 7 showed a sodium of 134 chloride 98 BUN and creatinine are 19 and 0.9 with a glucose of 420. Swabs for COVID influenza were all negative. CK and troponins were also negative. Patient was given additional fluids and a small dose of subcu insulin and his repeat sugars at the time of discharge were 200s MDM: Rationale: Tests considered and ordered secondary to shared decision making include: Labs and EKG Previous outside records reviewed: Old ER visits. Risk of complication and/or morbidity or mortality of patient management: None Medications-Per medication reconciliation Need for hospitalization: Patient does not meet criteria for hospitalization. Need for emergency major/minor surgery: No There are no social concerns with this patient. Prescription drug management Prescriptions will include symptomatic care Patient's prior external medical records from other ER visits were reviewed by me as indicated. Prior testing and results from previous visits were reviewed. Prior tests were taken into account with medical decision making and resource utilization, independent historian/historians were used to obtain complete medical history. I independently interpreted the test that were performed, results were reviewed by me and considered findings on radiology if ordered. Medical management and examination interpretation discussions were had by me with other qualified healthcare professionals as indicated for the patient's care. Problem List Problem List: (1) Uncontrolled diabetes mellitus with hyperglycemia (2) Fahr's syndrome (3) Tobacco abuse (4) Dehydration (5) COPD (chronic obstructive pulmonary disease) DX & DISP Disposition: Discharge Departure Impression: Primary Impression: Uncontrolled diabetes mellitus with hyperglycemia Additional Impressions: Dehydration, COPD (chronic obstructive pulmonary disease), Tobacco abuse, Fahr's syndrome Condition: Stable Additional Instructions: Patient and the caregiver have been informed of all the diagnostic tests and the imaging conducted during the today's visit to the emergency room and has verbalized understanding of the results I have personally reviewed and interpreted all diagnostic exams performed here in the ER today as well as the vital signs documented by the nursing staff. The patient is now being discharged to home and should follow up with the primary care physician or the specialist as directed by the ER staff. Follow-up with primary care provider in 1 to 2 days. Take medications as directed here in the emergency room. Okay to continue home medications unless otherwise discussed during your visit in the emergency room today. Return to your nearest emergency room if symptoms worsen or if there is no improvement. Call 911 if you need immediate assistance. Take Tylenol or Motrin [id number] as needed and if no contraindications are present. Increase oral hydration. A wound culture or urine culture was ordered here in the emergency room department please follow-up with primary care provider and advise them to get repeat ports from our facility. If you had any Manuel wrap/splints that were applied here, please do not remove them until you see your primary care or specialty. Referrals: DEMI PERKINS MD (PCP) RIDGE TAO MD Feb 17, 2025 20:38
[2025-02-17 20:41] LABS: CREATINE KINASE, TOTAL 209.0 U/L (21-232); CREATININE 0.9 mg/dL (0.5-1.3); GLOMERULAR FILTR. RATE CALC 95.0 mL/min (>90); SODIUM SERUM 134.0 mmol/L (136-145); UREA NITROGEN, BLOOD 19.0 mg/dL (7-18)
[2025-02-17 20:44] LABS: GLUCOSE,RANDOM 420.0 mg/dL (70-105)
[2025-02-17] MEDS: 0.9%NACL 1000ML 1,000 ML IV ONE ×2 (20:49→21:43)
[2025-02-17 21:04] LABS: APPEARANCE,URINE CLEAR (CLEAR); GLUCOSE, URINE (UA) >=1000 mg/dL (NEGATIVE); LEUKOCYTE ESTERASE ,URINE NEGATIVE Leu/uL (NEGATIVE); NITRATE,URINE NEGATIVE (NEGATIVE); OCCULT BLOOD,URINE NEGATIVE (NEGATIVE)
--- NOTE | 2025-02-17 21:04 | HMCIMG ---
EXAM: CR Chest, 1 View. CLINICAL HISTORY: CHEST PAIN COMPARISON: None provided. FINDINGS: LUNGS: The lungs show no infiltrate or other acute finding. PLEURAL SPACES: No pleural effusion or pneumothorax. MEDIASTINUM: The cardiomediastinal silhouette is within normal limits. BONES: No aggressive appearing osseous lesion seen. IMPRESSION: No acute cardiopulmonary pathology is evident. /[place]
[2025-02-17 21:07] LABS: ADD UA MICROSCOPIC YES
[2025-02-17 22:18] VITALS: PULSE 62; RESP 18
[2025-02-18 00:07] VITALS: BP 132/75; PULSE 87; RESP 17; TEMP 97.7; O2SAT 100
== END 2025-02-18 00:17 | disposition home or self-care (01) ==
LOC: EDH 19:50
DX: E11.65 Type 2 diabetes mellitus with hyperglycemia (principal); E86.0 Dehydration; J44.9 Chronic obstructive pulmonary disease, unspecified; G23.8 Other specified degenerative diseases of basal ganglia; I10 Essential (primary) hypertension; E11.40 Type 2 diabetes mellitus with diabetic neuropathy, unspecified; F41.9 Anxiety disorder, unspecified; E78.00 Pure hypercholesterolemia, unspecified; F20.9 Schizophrenia, unspecified; Z79.899 Other long term (current) drug therapy; F17.210 Nicotine dependence, cigarettes, uncomplicated; Z79.82 Long term (current) use of aspirin; Z88.0 Allergy status to penicillin; Z90.49 Acquired absence of other specified parts of digestive tract; Z20.822 Contact with and (suspected) exposure to COVID-19
CPT/HCPCS: 99285; 96360; 71045; 87635; 96361 ×2; 82550; 84484; 80048; 85025; 87804 ×2; 82948 ×2; 81001; 36415; 93005; 94640; J7030 ×2